=== PATIENT | female | born 1940 | race Caucasian/White ===

== ENCOUNTER 2017-06-16 16:09 | Inpatient (IN) | payer OTHER ==
[~2017-06-16] VITALS: Ht 157.5 cm; Wt 75.0 kg
[2017-06-16 16:15] VITALS: Ht 157.5 cm; Wt 75.0 kg
[2017-06-16] MEDS ORDERED: IBUPROFEN 600 MG TAB PO STA (16:45)
--- NOTE | 2017-06-16 17:44 | RADRPT ---
PROCEDURE: XR right ankle. CLINICAL INDICATION: Injury with right ankle pain TECHNIQUE: AP , oblique and lateral views of the right ankle were performed. COMPARISON: None. FINDINGS: Diffuse decreased mineralization cannot exclude osteopenia or osteoporosis. Abnormal fracture lucenc y on the oblique view is present in the fifth metatarsal base without significant displacement. No a dditional fractures are noted. The ankle mortis and talar dome are intact. Mild soft tissue swelling is present. There is no evidence for a radiopaque foreign body. RPTAT:HJJR IMPRESSION: Acute, closed, nondisplaced fifth metatarsal base fracture of the right ankle with diffuse soft tis jessica swelling. Physician Dat Date Time Electronically viewed and signed by Physician Dat on 06/16/2017 17:43 /
--- NOTE | 2017-06-16 17:45 | RADRPT ---
PROCEDURE: XR right foot. CLINICAL INDICATION: Fall. Generalized pain TECHNIQUE: AP, lateral and oblique views of the right foot were obtained. COMPARISON: Right ankle series 06/16/2017 FINDINGS: Diffuse decreased mineralization cannot exclude osteopenia or osteoporosis. Abnormal fracture lucenc y through the lateral fifth metatarsal base is present without significant displacement of the fract ure fragments. No additional fractures are noted. There is no evidence for dislocation. Mild inte rphalangeal joint osteoarthrosis is seen. Mild diffuse soft tissue swelling is present . There is n o evidence for radiopaque foreign body. RPTAT:HJJR IMPRESSION: Acute, closed, nondisplaced fifth metatarsal base fracture of the right foot. Physician Dat Date Time Electronically viewed and signed by Physician Dat on 06/16/2017 17:44 JR/
[2017-06-16] MEDS ORDERED: IBUP-1542 PO (17:53)
--- NOTE | 2017-06-16 18:21 | ERA ---
ER Documentation Chief Complaint Date/Time DATE: 06/16/17 TIME: 18:13 Chief Complaint Complains of right foot pain HPI 77 year old female presents to the emergency department complaining of moderate achy right lateral ankle and foot pain status post fall that occurred at 11:30 AM this morning. Patient states that she lives alone in an apartment on the third floor with that has only stairs. Patient states that she has no family at bedside the patient has not taken any medications for this ROS All systems reviewed and are negative except as per history of present illness. Medications Home Meds Active Scripts Ibuprofen* (Motrin*) 600 Mg Tab, 400 MG PO Q6H Y for PAIN AND OR ELEVATED TEMP, #30 TAB Prov:TONNY FAROOQ PA-C 06/16/17 Allergies Allergies: Coded Allergies: No Known Allergy (Unverified , 06/16/17) PMhx/Soc Medical and Surgical Hx: pt denies Medical Hx, pt denies Surgical Hx Physical Exam Vitals Vital Signs Date Time Temp Pulse Resp B/P Pulse Ox O2 Delivery O2 Flow Rate FiO2 06/16/17 16:15 98.6 79 20 158/66 96 Physical Exam General: WD/WN, in no apparent distress, non-toxic appearing HENT: NC/AT Eyes: Conjunctiva normal Neck: Supple Pulm: Clear to auscultation, normal labored breathing; no wheezing/rales/ rhonchi heard CV: Good capillary refill GI: Non-distended, no guarding Back: No masses Ext: bone tenderness at posterior edge or tip of lateral malleolus bone tenderness at base of 5th metatarsal Neuro: plantar reflex intact, patellar reflex intact, +2 pedal pulses bilaterally, sensation intact Skin: intact Psych: Normal mood Results 24 hrs Current Medications Medications (Trade) Dose Ordered Sig/Morelia Route PRN Reason Start Time Stop Time Status Last Admin Dose Admin Ibuprofen (Motrin) 600 mg ONCE STAT PO 06/16/17 16:45 06/16/17 16:47 DC 06/16/17 17:03 Procedures/MDM This is a 77-year-old female presenting to the emergency department with a closed Mcleod fracture the right foot status post ground level fall that occurred at 11:30 AM. Patient will need to be admitted with orthopedic consultation. Patient is stable to be transferred to [facility]. In the ED, an x-ray of the right foot and ankle have been done, radiologist stated: acute, closed, nondisplaced fifth metatarsal base fracture of the right foot. Patient was placed in a nonweightbearing posterior ankle splint. I have consulted my supervising physician will contact the hospitalist and orthopedist Departure Diagnosis: Primary Impression: Metatarsal fracture Condition: Stable TONNY FAROOQ PA-C Jun 16, 2017 18:21
[2017-06-16] MEDS ORDERED: ONDANSETRON 4 MG INJ IV PRN (19:00)
[2017-06-16] MEDS ORDERED: ACETAMINOPHEN 325 MG TAB PO PRN (19:00)
[2017-06-16 19:12] LABS: BASOPHIL # 0.1 10^3/ul (0.0-0.1); BASOPHILS % 0.8 % (0.0-2.0); EOSINOPHILS # 0.2 10^3/ul (0.0-0.5); EOSINOPHILS % 2.6 % (0.0-7.0); HEMATOCRIT 40.4 % (37.0-47.0); HEMOGLOBIN 13.8 g/dl (12.0-16.0); LYMPHOCYTES # 2.3 10^3/ul (0.8-2.9); LYMPHOCYTES % 31.7 % (15.0-51.0); MEAN CORPUSCULAR HEMOGLOBIN 31.3 pg (29.0-33.0); MEAN CORPUSCULAR HGB CONC 34.2 g/dl (32.0-37.0); MEAN CORPUSCULAR VOLUME 91.6 fl (82.0-101.0); MEAN PLATELET VOLUME 9.1 fl (7.4-10.4); MONOCYTE # 0.4 10^3/ul (0.3-0.9); MONOCYTES % 5.8 % (0.0-11.0); NEUTROPHIL # 4.2 10^3/ul (1.6-7.5); NEUTROPHILS % 58.7 % (39.0-77.0); PLATELET COUNT 223 10^3/UL (140-415); RED BLOOD COUNT 4.41 10^6/ul (4.20-5.40); WHITE BLOOD COUNT 7.2 10^3/ul (4.8-10.8)
[2017-06-16 19:28] LABS: INR 0.93; PROTIME 12.5 Sec (12.2-14.2)
[2017-06-16 19:29] LABS: PARTIAL THROMBOPLASTIN TIME 28.1 Sec (25.0-35.0)
[2017-06-16 19:39] LABS: ANION GAP 13 (8-16); BLOOD UREA NITROGEN 25 mg/dl (7-20); CALCIUM 9.9 mg/dl (8.4-10.2); CARBON DIOXIDE 29 mmol/L (21-31); CHLORIDE 102 mmol/L (97-110); CREATININE 1.05 mg/dl (0.44-1.00); GLUCOSE 181 mg/dl (70-220); SODIUM 140 mmol/L (135-144)
[2017-06-16 19:57] LABS: TROPONIN-I < 0.012 ng/ml (0.00-0.12)
[2017-06-16 20:10] VITALS: TEMP 97.3
--- NOTE | 2017-06-16 20:54 | RADRPT ---
PROCEDURE: XR Chest. CLINICAL INDICATION: Abdominal pain. TECHNIQUE: Single frontal view of the chest. COMPARISON: None. FINDINGS: The cardiomediastinal silhouette is within normal limits. Tortuous thoracic aorta appear The lungs a re clear. No signs of pleural fluid or pneumothorax are seen. Degenerative changes of bilateral alex ohumeral joint with marginal osteophytes. Otherwise, the osseous structures and soft tissues are unr emarkable. IMPRESSION: No evidence for active cardiopulmonary disease. RPTAT: UU Physician Broderick Date Time Electronically viewed and signed by Physician Broderick on 06/16/2017 20:53 RS/
[2017-06-16 21:05] LABS: ADD UMIC YES; UR ASCORBIC ACID NEGATIVE (NEGATIVE); UR BACTERIA FEW /HPF (NONE SEEN); UR BILIRUBIN (Dip) NEGATIVE (NEGATIVE); UR BLOOD (Dip) NEGATIVE (NEGATIVE); UR CLARITY CLEAR (CLEAR); UR COLOR YELLOW (YELLOW); UR GLUCOSE (Dip) NEGATIVE (NEGATIVE); UR KETONES (Dip) NEGATIVE (NEGATIVE); UR LEUKOCYTE ESTERASE (Dip) 1+ Leu/ul (NEGATIVE); UR MUCUS FEW /HPF (NONE SEEN); UR NITRITE (Dip) NEGATIVE (NEGATIVE); UR RBC 2 /HPF (0-5); UR SPECIFIC GRAVITY (Dip) 1.012 (1.003-1.030); UR SQUAMOUS EPITHELIAL CELL FEW /HPF (FEW); UR TOTAL PROTEIN (Dip) NEGATIVE (NEGATIVE); UR UROBILINOGEN (Dip) NEGATIVE (NEGATIVE)
[2017-06-16] MEDS ORDERED: LISI20TA11 PO (23:08)
[2017-06-17] MEDS ORDERED: ACETAMINOPHEN 325 MG TAB PO PRN
[2017-06-17] MEDS ORDERED: GLUCAGON 1 MG INJ IM PRN (00:15)
[2017-06-17] MEDS ORDERED: DEXTROSE 50% 50 ML SYRINGE IV PRN ×2 (00:15)
[2017-06-17] MEDS ORDERED: GLUCOSE GEL 15 GRAM TUBE PO PRN ×2 (00:15)
[2017-06-17] MEDS ORDERED: GLUCOSE GEL 15 GRAM TUBE BUCCAL PRN (00:15)
[2017-06-17] MEDS: HEPARIN 5,000 UNIT/0.5 ML VIAL SC SCH ×3 (00:59→21:34)
[2017-06-17] MEDS: ACCU-CHEK XX SCH (02:00)
[2017-06-17] MEDS ORDERED: ACCU-CHEK XX SCH (02:00)
--- NOTE | 2017-06-17 05:12 | HP ---
Date/Time of Note Date/Time of Note DATE: 06/17/17 TIME: 05:04 Assessment/Plan VTE Prophylaxis VTE Prophylaxis Intervention: heparin Lines/Catheters IV Catheter Type (from Nrsg): Saline Lock Assessment/Plan Assessment/Plan 1. Acute right fifth metatarsal fracture -Nonweightbearing status for now -Pain management and cold compress over the ankle -Dr. Collier from Ortho to see 2. Presumed AK I -IV fluid for now 3. History of hypertension -Adjust antihypertensives as needed 4. History of diabetes -Check A1c -Insulin while in-house HPI/ROS Admit Date/Time Admit Date/Time Jun 16, 2017 at 18:39 Hx of Present Illness This is a 77-year-old female with a history of CVA in 2010 hypertension, dyslipidemia, diabetes who presented to the ER complaining of right foot/ankle pain status post a fall. Patient fell as she was going down the stairs. She thinks, she either slipped or tripped. Denied any chest pain, lightheadedness, palpitation, lightheadedness. She denied hitting her head. When she presented to the ER imaging shows nondisplaced closed acute right fifth metatarsal base fracture with diffuse soft tissue swelling of her ankle. PMH/Family/Social Past Medical History Medical History: diabetes, high cholesterol Social History Alcohol Use: none Smoking Status: Never smoker Drug Use: none Exam/Review of Systems Vital Signs Vitals Vital Signs Date Time Temp Pulse Resp B/P Pulse Ox O2 Delivery O2 Flow Rate FiO2 06/16/17 20:10 97.3 63 18 146/64 97 Room Air Exam Constitutional: other (Sleepy but arousable. No acute distress) Head: atraumatic, normocephalic Eyes: PERRL Respiratory: clear to auscultation, normal air movement Cardiovascular: nl pulses, regular rate and rhythm Gastrointestinal: non-tender, soft Extremities: other (Left ankle/foot swelling and tenderness) Labs Result Diagram: 06/16/17190406/16/171904 Medications Medications Current Medications Diagnostic Test (Pha) (Accu-Chek) XX ; Start 06/17/17 at 02:00 Insulin Glargine (Lantus) 10 unit HS SC ; Start 06/17/17 at 21:00 Lisinopril (Zestril) 20 mg DAILY PO ; Start 06/17/17 at 09:00 Morphine Sulfate (morphine) 3 mg Q4H PRN IV PAIN; Start 06/17/17 at 00:00 Acetaminophen (Tylenol Tab) 650 mg Q6H PRN PO PAIN AND OR ELEVATED TEMP; Start 06/17/17 at 00:00 Heparin Sodium (Porcine) (Heparin (5000 Units/0.5 ml)) 5,000 unit Q12 SC Last administered on 06/17/17t 00:59; Admin Dose 5,000 UNIT; Start 06/17/17 at 00:00 Atorvastatin Calcium (Lipitor) 40 mg HS PO ; Start 06/17/17 at 21:00 Miscellaneous Information 1 ea NOTE XX ; Start 06/17/17 at 00:15 Glucose (Glutose) 15 gm Q15M PRN PO DECREASED GLUCOSE; Start 06/17/17 at 00:15 Glucose (Glutose) 22.5 gm Q15M PRN PO DECREASED GLUCOSE; Start 06/17/17 at 00: 15 Dextrose (D50w Syringe) 25 ml Q15M PRN IV DECREASED GLUCOSE; Start 06/17/17 at 00:15 Dextrose (D50w Syringe) 50 ml Q15M PRN IV DECREASED GLUCOSE; Start 06/17/17 at 00:15 Glucagon (Glucagen) 1 mg Q15M PRN IM DECREASED GLUCOSE; Start 06/17/17 at 00:15 Glucose (Glutose) 15 gm Q15M PRN BUCCAL DECREASED GLUCOSE; Start 06/17/17 at 00 :15 JEAN LUCIA MD Jun 17, 2017 05:12
[2017-06-17 05:13] LABS: BASOPHIL # 0.1 10^3/ul (0.0-0.1); BASOPHILS % 0.9 % (0.0-2.0); EOSINOPHILS # 0.2 10^3/ul (0.0-0.5); EOSINOPHILS % 4.1 % (0.0-7.0); HEMATOCRIT 35.6 % (37.0-47.0); HEMOGLOBIN 12.1 g/dl (12.0-16.0); LYMPHOCYTES # 2.1 10^3/ul (0.8-2.9); LYMPHOCYTES % 39.9 % (15.0-51.0); MEAN CORPUSCULAR HEMOGLOBIN 30.6 pg (29.0-33.0); MEAN CORPUSCULAR VOLUME 90.1 fl (82.0-101.0); MEAN PLATELET VOLUME 9.5 fl (7.4-10.4); MONOCYTE # 0.4 10^3/ul (0.3-0.9); MONOCYTES % 7.7 % (0.0-11.0); NEUTROPHIL # 2.5 10^3/ul (1.6-7.5); NEUTROPHILS % 47.2 % (39.0-77.0); PLATELET COUNT 209 10^3/UL (140-415); RED BLOOD COUNT 3.95 10^6/ul (4.20-5.40); RED CELL DISTRIBUTION WIDTH 11.9 % (11.5-14.5); WHITE BLOOD COUNT 5.3 10^3/ul (4.8-10.8)
[2017-06-17 05:47] LABS: ALBUMIN 3.7 g/dl (3.3-4.9); ALBUMIN/GLOBULIN RATIO 1.12; BILIRUBIN,INDIRECT 0.4 mg/dl (0-1.1); BILIRUBIN,TOTAL 0.4 mg/dl (0.2-1.3); CALCIUM 9.2 mg/dl (8.4-10.2); CREATININE 1.07 mg/dl (0.44-1.00)
[2017-06-17] MEDS: INSULIN ASPART [NOVOLOG] 3 ML PEN SC SCH ×4 (07:50→21:33)
[2017-06-17 08:16] VITALS: BP 119/57; RESP 16
[2017-06-17] MEDS: LISINOPRIL 20 MG TAB PO SCH (08:51)
[2017-06-17] MEDS: morphine 4 MG/ML VIAL IV PRN (08:54)
--- NOTE | 2017-06-17 13:39 | PN ---
Date/Time of Note Date/Time of Note DATE: 06/17/17 TIME: 13:36 Assessment/Plan VTE Prophylaxis VTE Prophylaxis Intervention: heparin Lines/Catheters IV Catheter Type (from Nrs): Saline Lock Assessment/Plan Chief Complaint/Hosp Course Assessment/Plan: 77 F with: 1. Acute right fifth metatarsal fracture -Nonweightbearing status for now -Pain management and cold compress over the ankle -Dr. Collier from Ortho to see, follow-up recommendations 2. Presumed AK I -IV fluid for now 3. History of hypertension -Adjust antihypertensives as needed 4. History of diabetes -f/u A1c -Insulin while in-house Problems: Subjective 24 Hr Interval Summary Free Text/Dictation Still waiting to be seen by orthopedic surgery team. No acute events overnight. Exam/Review of Systems Vital Signs Vitals Vital Signs Date Time Temp Pulse Resp B/P Pulse Ox O2 Delivery O2 Flow Rate FiO2 06/17/17 08:16 98.7 66 16 119/57 100 06/16/17 20:10 Room Air Intake and Output 06/16/17 06/16/17 06/17/17 15:00 23:00 07:00 Intake Total 740 ml Output Total 550 ml Balance 190 ml Exam Constitutional: lying in bed Head: atraumatic, normocephalic Eyes: PERRL Respiratory: clear to auscultation, normal air movement Cardiovascular: nl pulses, regular rate and rhythm Gastrointestinal: non-tender, soft Extremities: other (Left ankle/foot swelling and tenderness) Results Result Diagram: 06/17/17 0449 06/17/17 0449 Results 24 hrs Laboratory Tests Test 06/16/17 19:05 06/16/17 20:20 06/17/17 00:53 06/17/17 04:49 White Blood Count 7.2 5.3 # Red Blood Count 4.41 3.95 L Hemoglobin 13.8 12.1 Hematocrit 40.4 35.6 L Mean Corpuscular Volume 91.6 90.1 Mean Corpuscular Hemoglobin 31.3 30.6 Mean Corpuscular Hemoglobin Concent 34.2 34.0 Red Cell Distribution Width 12.0 11.9 Platelet Count 223 209 Mean Platelet Volume 9.1 9.5 Neutrophils % 58.7 47.2 Lymphocytes % 31.7 39.9 Monocytes % 5.8 7.7 Eosinophils % 2.6 4.1 Basophils % 0.8 0.9 Nucleated Red Blood Cells % 0.0 0.0 Neutrophils # 4.2 2.5 Lymphocytes # 2.3 2.1 Monocytes # 0.4 0.4 Eosinophils # 0.2 0.2 Basophils # 0.1 0.1 Nucleated Red Blood Cells # 0.0 0.0 Prothrombin Time 12.5 Prothrombin Time Ratio 1.0 INR International Normalized Ratio 0.93 Activated Partial Thromboplast Time 28.1 Sodium Level 140 141 Potassium Level 4.0 4.0 Chloride Level 102 107 Carbon Dioxide Level 29 27 Anion Gap 13 11 Blood Urea Nitrogen 25 H 24 H Creatinine 1.05 H 1.07 H Glucose Level 181 179 Calcium Level 9.9 9.2 Troponin I < 0.012 Urine Color YELLOW Urine Clarity CLEAR Urine pH 6.0 Urine Specific [place] 1.012 Urine Ketones NEGATIVE Urine Nitrite NEGATIVE Urine Bilirubin NEGATIVE Urine Urobilinogen NEGATIVE Urine Leukocyte Esterase 1+ H Urine Microscopic RBC 2 Urine Microscopic WBC 12 H Urine Squamous Epithelial Cells FEW Urine Bacteria FEW A Urine Mucus FEW A Urine Hemoglobin NEGATIVE Urine Glucose NEGATIVE Urine Total Protein NEGATIVE Bedside Glucose 146 Hemoglobin A1c 5.9 Total Bilirubin 0.4 Direct Bilirubin 0.00 Indirect Bilirubin 0.4 Aspartate Amino Transf (AST/SGOT) 20 Alanine Aminotransferase (ALT/SGPT) 24 Alkaline Phosphatase 66 Total Protein 7.0 Albumin 3.7 Globulin 3.30 H Albumin/Globulin Ratio 1.12 Test 06/17/17 08:50 06/17/17 12:22 Bedside Glucose 137 189 Medications Medications Current Medications Diagnostic Test (Pha) (Accu-Chek) 1 02 XX ; Start 06/17/17 at 02:00 Insulin Glargine (Lantus) 10 unit HS SC ; Start 06/17/17 at 21:00 Lisinopril (Zestril) 20 mg DAILY PO Last administered on 06/17/17 08:51; Admin Dose 20 MG; Start 06/17/17 at 09:00 Morphine Sulfate (morphine) 3 mg Q4H PRN IV PAIN Last administered on 08:54; Admin Dose 3 MG; Start 06/17/17 at 00:00 Acetaminophen (Tylenol Tab) 650 mg Q6H PRN PO PAIN AND OR ELEVATED TEMP; Start 06/17/17 at 00:00 Heparin Sodium (Porcine) (Heparin (5000 Units/0.5 ml)) 5,000 unit Q12 SC Last administered on 06/17/17t 09:03; Admin Dose 5,000 UNIT; Start 06/17/17 at 00:00 Atorvastatin Calcium (Lipitor) 40 mg HS PO ; Start 06/17/17 at 21:00 Miscellaneous Information 1 ea NOTE XX ; Start 06/17/17 at 00:15 Glucose (Glutose) 15 gm Q15M PRN PO DECREASED GLUCOSE; Start 06/17/17 at 00:15 Glucose (Glutose) 22.5 gm Q15M PRN PO DECREASED GLUCOSE; Start 06/17/17 at 00: 15 Dextrose (D50w Syringe) 25 ml Q15M PRN IV DECREASED GLUCOSE; Start 06/17/17 at 00:15 Dextrose (D50w Syringe) 50 ml Q15M PRN IV DECREASED GLUCOSE; Start 06/17/17 at 00:15 Glucagon (Glucagen) 1 mg Q15M PRN IM DECREASED GLUCOSE; Start 06/17/17 at 00:15 Glucose (Glutose) 15 gm Q15M PRN BUCCAL DECREASED GLUCOSE; Start 06/17/17 at 00 :15 MICHELLE PALMA Jun 17, 2017 13:39
[2017-06-17 14:00] VITALS: BP 127/55; RESP 15
[2017-06-17] MEDS: CIPROFLOXACIN 250 MG TAB PO SCH ×2 (14:51→21:30)
[2017-06-17 19:10] VITALS: BP 123/63; RESP 20
--- NOTE | 2017-06-17 20:48 | CONS ---
DATE OF ADMISSION: 06/16/2017 DATE OF CONSULTATION: 06/17/2017 HISTORY OF PRESENT ILLNESS: Patient is a 77-year-old female who was admitted through the emergency room on the May when she was brought into the emergency room because of the painful swelling involving her left foot. According to available information, she either slipped or tripped while she was going down stairs. She is known to have diabetes, hypertension and dyslipidemia. She also had a CVA in 2010, however, there were no residual weakness or difficulty in ambulation prior to this incidence. PHYSICAL EXAMINATION: GENERAL: Revealed a 77-year-old female who was not in any acute distress. EXTREMITIES: Her right lower extremity was already immobilized in a short-leg posterior splint. The examination through the splint and dressings revealed tenderness and swelling over the lateral aspect of the right foot. The tenderness seems to be mostly localized over the base of the right 5th metatarsal. There were no signs of neurovascular compromise involving the right foot. X-rays of the right foot revealed a presence of fracture involving the base of the right 5th metatarsal. The alignment was acceptable. DIAGNOSTIC IMPRESSION: Mcleod fracture, that is a fracture involving the base of the 5th metatarsal of the right foot, in acceptable alignment. Plan RECOMMENDATIONS FOR TREATMENT: 1. Immobilization of the right lower extremity in a short-leg Cam walker brace for six weeks. 2. Recommended brace has been ordered. She could be up and around with the brace on with weightbearing as tolerated. Dictated By: In Katie Collier MD /[email or web address]/[email or web address] /Document#: [id number]
[2017-06-17] MEDS: ATORVASTATIN 40 MG TAB PO SCH (21:30)
[2017-06-17] MEDS: INSULIN GLARGINE [LANtus] 3 ML PEN SC SCH (21:34)
[2017-06-18] MEDS: morphine 4 MG/ML VIAL IV PRN ×2 (00:27→08:45)
[2017-06-18 02:00] VITALS: BP 122/59; RESP 18
[2017-06-18] MEDS: ACCU-CHEK XX SCH (02:00)
[2017-06-18] MEDS: CIPROFLOXACIN 250 MG TAB PO SCH ×2 (06:49→17:26)
[2017-06-18 07:50] VITALS: BP 133/62; RESP 20
[2017-06-18] MEDS: INSULIN ASPART [NOVOLOG] 3 ML PEN SC SCH ×4 (07:50→21:00)
[2017-06-18] MEDS: LISINOPRIL 20 MG TAB PO SCH (08:38)
[2017-06-18] MEDS: HEPARIN 5,000 UNIT/0.5 ML VIAL SC SCH ×2 (08:42→21:13)
[2017-06-18] MEDS: HYDROCODONE/APAP (7.5/325) TAB PO PRN (10:39)
[2017-06-18] MEDS ORDERED: morphine 2 MG INJ IV PRN (11:00)
--- NOTE | 2017-06-18 11:40 | PN ---
Date/Time of Note Date/Time of Note DATE: 06/18/17 TIME: 11:38 Assessment/Plan VTE Prophylaxis VTE Prophylaxis Intervention: heparin Lines/Catheters IV Catheter Type (from Nrsg): Saline Lock Urinary Cath still in place: No Assessment/Plan Chief Complaint/Hosp Course Assessment/Plan: 77 F with: 1. Acute right fifth metatarsal fracture -Nonweightbearing status for now -Pain management and cold compress over the ankle -Dr. Collier from Ortho recommending immobilization of the right lower extremity in a short-leg Cam walker brace for six weeks -has been ordered, will also plan for physical therapy after this. 2. Presumed AK I -IV fluid for now 3. History of hypertension -Adjust antihypertensives as needed 4. History of diabetes -f/u A1c -Insulin while in-house Problems: Subjective 24 Hr Interval Summary Free Text/Dictation Seen by orthopedic team this morning. Complaining of right foot pain this morning. Exam/Review of Systems Vital Signs Vitals Vital Signs Date Time Temp Pulse Resp B/P Pulse Ox O2 Delivery O2 Flow Rate FiO2 06/18/17 07:50 97.8 69 20 133/62 94 06/16/17 20:10 Room Air Intake and Output 06/17/17 06/17/17 06/18/17 15:00 23:00 07:00 Intake Total 1100 ml 800 ml Output Total 800 ml 1000 ml Balance 300 ml -200 ml Exam Constitutional: lying in bed Head: atraumatic, normocephalic Eyes: PERRL Respiratory: clear to auscultation, normal air movement Cardiovascular: nl pulses, regular rate and rhythm Gastrointestinal: non-tender, soft Extremities: other (Left ankle/foot swelling and tenderness) Results Result Diagram: 06/17/17 0449 06/17/17 0449 Results 24 hrs Laboratory Tests Test 06/17/17 12:22 06/17/17 17:35 06/17/17 21:31 06/18/17 02:21 Bedside Glucose 189 117 212 118 Test 06/18/17 08:37 Bedside Glucose 97 Medications Medications Current Medications Diagnostic Test (Pha) (Accu-Chek) 1 ea 02 XX Last administered on 06/18/17 02: 00; Admin Dose 1 EA; Start 06/17/17 at 02:00 Insulin Glargine (Lantus) 10 unit HS SC Last administered on 06/17/17 21:34; Admin Dose 10 UNIT; Start 06/17/17 at 21:00 Lisinopril (Zestril) 20 mg DAILY PO Last administered on 06/18/17 08:38; Admin Dose 20 MG; Start 06/17/17 at 09:00 Acetaminophen (Tylenol Tab) 650 mg Q6H PRN PO PAIN AND OR ELEVATED TEMP; Start 06/17/17 at 00:00 Heparin Sodium (Porcine) (Heparin (5000 Units/0.5 ml)) 5,000 unit Q12 SC Last administered on 06/18/17 08:42; Admin Dose 5,000 UNIT; Start 06/17/17 at 00:00 Atorvastatin Calcium (Lipitor) 40 mg HS PO Last administered on 06/17/17 21:30 ; Admin Dose 40 MG; Start 06/17/17 at 21:00 Miscellaneous Information 1 ea NOTE XX ; Start 06/17/17 at 00:15 Glucose (Glutose) 15 gm Q15M PRN PO DECREASED GLUCOSE; Start 06/17/17 at 00:15 Glucose (Glutose) 22.5 gm Q15M PRN PO DECREASED GLUCOSE; Start 06/17/17 at 00: 15 Dextrose (D50w Syringe) 25 ml Q15M PRN IV DECREASED GLUCOSE; Start 06/17/17 at 00:15 Dextrose (D50w Syringe) 50 ml Q15M PRN IV DECREASED GLUCOSE; Start 06/17/17 at 00:15 Glucagon (Glucagen) 1 mg Q15M PRN IM DECREASED GLUCOSE; Start 06/17/17 at 00:15 Glucose (Glutose) 15 gm Q15M PRN BUCCAL DECREASED GLUCOSE; Start 06/17/17 at 00 :15 Ciprofloxacin (Cipro) 250 mg BID@06,18 PO Last administered on 06/18/17 06:49 ; Admin Dose 250 MG; Start 06/17/17 at 14:00 Acetaminophen/ Hydrocodone Bitart ([place] (7.5-325)) 1 tab Q4H PRN PO PAIN Last administered on 06/18/17 10:39; Admin Dose 1 TAB; Start 06/18/17 at 11:00 Morphine Sulfate (morphine) 2 mg Q4H PRN IV SEVERE PAIN LEVEL 7-10; Start 06/18 at 11:00 MICHELLE PALMA Jun 18, 2017 11:40
[2017-06-18 14:43] VITALS: BP 166/76; RESP 18
[2017-06-18] MEDS ORDERED: ONDANSETRON 4 MG INJ IV PRN (15:00)
[2017-06-18 19:20] VITALS: BP 131/62; RESP 18
[2017-06-18] MEDS: ATORVASTATIN 40 MG TAB PO SCH (21:10)
[2017-06-18] MEDS: INSULIN GLARGINE [LANtus] 3 ML PEN SC SCH (21:14)
[2017-06-19] MEDS: ACCU-CHEK XX SCH (01:39)
[2017-06-19 02:20] VITALS: BP 126/62; RESP 18
[2017-06-19] MEDS ORDERED: MAGNESIUM HYDROXIDE 30ML CUP PO PRN (06:00)
[2017-06-19] MEDS: CIPROFLOXACIN 250 MG TAB PO SCH (06:06)
[2017-06-19] MEDS: SENNA TAB PO SCH ×2 (06:06→08:48)
[2017-06-19 07:43] VITALS: BP 148/73; RESP 18
[2017-06-19] MEDS: INSULIN ASPART [NOVOLOG] 3 ML PEN SC SCH ×4 (07:50→20:28)
[2017-06-19] MEDS: LISINOPRIL 20 MG TAB PO SCH (08:48)
[2017-06-19] MEDS: HEPARIN 5,000 UNIT/0.5 ML VIAL SC SCH ×2 (08:50→20:20)
[2017-06-19] MEDS: HYDROCODONE/APAP (7.5/325) TAB PO PRN (13:12)
--- NOTE | 2017-06-19 15:20 | PN ---
Date/Time of Note Date/Time of Note DATE: 06/19/17 TIME: 15:16 Assessment/Plan VTE Prophylaxis VTE Prophylaxis Intervention: SCD's Lines/Catheters IV Catheter Type (from Nrsg): Saline Lock Urinary Cath still in place: No Assessment/Plan Assessment/Plan 77 yo F admitted for R ankle pain following a fall, found to have a Mcleod fracture sp ortho eval, conservative management advised discharge planning in process, CM aware cont home meds Patient is medically stable for discharge once a disposition location is determined Subjective 24 Hr Interval Summary Free Text/Dictation Pt resting in bed this morning Exam/Review of Systems Vital Signs Vitals Vital Signs Date Time Temp Pulse Resp B/P Pulse Ox O2 Delivery O2 Flow Rate FiO2 06/19/17 07:43 98.0 70 18 148/73 97 06/16/17 20:10 Room Air Intake and Output 06/18/17 06/18/17 06/19/17 15:00 23:00 07:00 Intake Total 300 ml 450 ml Output Total 200 ml 400 ml Balance 100 ml 50 ml Exam nad ankle in boot resp nonlabored no edema no rashes Results Result Diagram: 06/17/17 0449 06/17/17 0449 Results 24 hrs Laboratory Tests Test 06/18/17 17:26 06/18/17 21:08 06/19/17 08:31 06/19/17 12:48 Bedside Glucose 128 180 118 201 Medications Medications Current Medications Diagnostic Test (Pha) (Accu-Chek) 1 ea 02 XX Last administered on 06/18/17 02: 00; Admin Dose 1 EA; Start 06/17/17 at 02:00 Insulin Glargine (Lantus) 10 unit HS SC Last administered on 06/18/17 21:14; Admin Dose 10 UNIT; Start 06/17/17 at 21:00 Lisinopril (Zestril) 20 mg DAILY PO Last administered on 06/19/17 08:48; Admin Dose 20 MG; Start 06/17/17 at 09:00 Acetaminophen (Tylenol Tab) 650 mg Q6H PRN PO PAIN AND OR ELEVATED TEMP; Start 06/17/17 at 00:00 Heparin Sodium (Porcine) (Heparin (5000 Units/0.5 ml)) 5,000 unit Q12 SC Last administered on 06/19/17 08:50; Admin Dose 5,000 UNIT; Start 06/17/17 at 00:00 Atorvastatin Calcium (Lipitor) 40 mg HS PO Last administered on 06/18/17 21:10 ; Admin Dose 40 MG; Start 06/17/17 at 21:00 Miscellaneous Information 1 ea NOTE XX ; Start 06/17/17 at 00:15 Glucose (Glutose) 15 gm Q15M PRN PO DECREASED GLUCOSE; Start 06/17/17 at 00:15 Glucose (Glutose) 22.5 gm Q15M PRN PO DECREASED GLUCOSE; Start 06/17/17 at 00: 15 Dextrose (D50w Syringe) 25 ml Q15M PRN IV DECREASED GLUCOSE; Start 06/17/17 at 00:15 Dextrose (D50w Syringe) 50 ml Q15M PRN IV DECREASED GLUCOSE; Start 06/17/17 at 00:15 Glucagon (Glucagen) 1 mg Q15M PRN IM DECREASED GLUCOSE; Start 06/17/17 at 00:15 Glucose (Glutose) 15 gm Q15M PRN BUCCAL DECREASED GLUCOSE; Start 06/17/17 at 00 :15 Acetaminophen/ Hydrocodone Bitart ([place] (7.5-325)) 1 tab Q4H PRN PO PAIN Last administered on 06/19/17 13:12; Admin Dose 1 TAB; Start 06/18/17 at 11:00 Morphine Sulfate (morphine) 2 mg Q4H PRN IV SEVERE PAIN LEVEL 7-10 Last administered on 06/18/17 11:59; Admin Dose 2 MG; Start 06/18/17 at 11:00 Ondansetron HCl (Zofran Inj) 4 mg Q6H PRN IV NAUSEA AND/OR VOMITING; Start 06/18/17 at 15:00 Senna (Senokot) 2 tab DAILY PO Last administered on 06/19/17 08:48; Admin Dose 2 TAB; Start 06/19/17 at 06:00 Magnesium Hydroxide (Milk Of Mag) 30 ml DAILY PRN PO CONSTIPATION; Start at 06:00 OSCAR PATEL MD Jun 19, 2017 15:20
[2017-06-19 19:25] VITALS: BP 163/74; RESP 20
[2017-06-19] MEDS: ATORVASTATIN 40 MG TAB PO SCH (20:18)
[2017-06-19] MEDS: INSULIN GLARGINE [LANtus] 3 ML PEN SC SCH (20:27)
[2017-06-20 00:30] VITALS: BP 137/69; PULSE 74
[2017-06-20] MEDS: ACCU-CHEK XX SCH (01:18)
[2017-06-20 02:15] VITALS: BP 137/69; RESP 19
--- NOTE | 2017-06-20 07:34 | PN ---
DATE: 06/19/2017 SUBJECTIVE DATA: The patient has been up with Cam Walker brace over right lower extremity. If she can tolerate ambulation well, she can be discharged anytime from orthopedic surgical point of view. Further ortho followup in about 7-10 days with the repeated x-rays of the right foot. Dictated By: In Katie Collier MD /[email or web address]/hazel /Document#: [id number]
[2017-06-20] MEDS: INSULIN ASPART [NOVOLOG] 3 ML PEN SC SCH ×4 (07:50→20:25)
[2017-06-20 08:07] VITALS: BP 150/74; RESP 18
[2017-06-20] MEDS: SENNA TAB PO SCH (08:46)
[2017-06-20] MEDS: LISINOPRIL 20 MG TAB PO SCH (08:46)
[2017-06-20] MEDS: HEPARIN 5,000 UNIT/0.5 ML VIAL SC SCH ×3 (08:49→20:37)
--- NOTE | 2017-06-20 11:25 | PDOCDIS ---
Discharge Instructions CONDITION Patient Condition: Stable HOME CARE INSTRUCTIONS: Special Diet: CARB CONTROLLED FOLLOW UP/APPOINTMENTS Follow-up Plan Follow up with the orthopedic surgeon Dr Collier in 4-6 weeks Office Address [address] [place] [id number] Office OSCAR PATEL MD Jun 20, 2017 11:25
--- NOTE | 2017-06-20 11:29 | DS ---
Date/Time of Note Date/Time of Note DATE: 06/20/17 TIME: 11:25 Discharge Summary Admission/Discharge Info Admit Date/Time Jun 16, 2017 at 18:39 Discharge Date/Time Discharge Diagnosis Acute, closed, nondisplaced fifth metatarsal base fracture of the right ankle Patient Condition: Stable Consults orthopedics Procedures R foot/ankle XRs Acute, closed, nondisplaced fifth metatarsal base fracture of the right ankle with diffuse soft tissue swelling. Hx of Present Illness This is a 77-year-old female with a history of CVA in 2010 hypertension, dyslipidemia, diabetes who presented to the ER complaining of right foot/ankle pain status post a fall. Patient fell as she was going down the stairs. She thinks, she either slipped or tripped. Denied any chest pain, lightheadedness, palpitation, lightheadedness. She denied hitting her head. When she presented to the ER imaging shows nondisplaced closed acute right fifth metatarsal base fracture with diffuse soft tissue swelling of her ankle. Hospital Course Pt seen by ortho. Conservative management advised with CAM boot and outpatient follow up. Pt seen by PT which advised ARU v SNF. No changes made from patient's admit meds aside from norco PRN pain. Home Meds Active Scripts Ibuprofen* (Motrin*) 600 Mg Tab, 400 MG PO Q6H Y for PAIN AND OR ELEVATED TEMP, #30 TAB Prov:TONYN FAROOQ PA-C 06/16/17 Reported Medications Lisinopril* (Lisinopril*) 20 Mg Tablet, 20 MG PO DAILY, #30 TAB 06/16/17 Follow-up Plan Follow up with the orthopedic surgeon Dr Aviles in 7-10 days Office Address [address] [place] [id number] Office Primary Care Provider [facility] Time spent on discharge: > 30 minutes Pending Labs Laboratory Tests Test 06/19/17 12:48 06/19/17 17:29 06/19/17 20:17 06/20/17 08:44 Bedside Glucose 201mg/dL (70-220) 160mg/dL (70-220) 171mg/dL (70-220) 104mg/dL (70-220) Copies To: CC: RON AVILES MD, ELLEN MD Jun 20, 2017 11:29 Bedside Glucose 201mg/dL (70-220) 160mg/dL (70-220) 171mg/dL (70-220) 104mg/dL (70-220) Copies To: CC: RON AVILES MD, ELLEN MD Jun 20, 2017 11:29
[2017-06-20] MEDS: HYDROCODONE/APAP (7.5/325) TAB PO PRN (17:22)
[2017-06-20 20:00] VITALS: BP 145/65; RESP 20
[2017-06-20] MEDS: ATORVASTATIN 40 MG TAB PO SCH (20:24)
[2017-06-20] MEDS: INSULIN GLARGINE [LANtus] 3 ML PEN SC SCH (20:24)
[2017-06-21] MEDS: ACCU-CHEK XX SCH (02:00)
[2017-06-21 02:14] VITALS: BP 139/63; RESP 20
[2017-06-21] MEDS: INSULIN ASPART [NOVOLOG] 3 ML PEN SC SCH ×4 (07:50→20:26)
[2017-06-21 07:56] VITALS: BP 123/60; RESP 18
[2017-06-21] MEDS: LISINOPRIL 20 MG TAB PO SCH (08:46)
[2017-06-21] MEDS: HEPARIN 5,000 UNIT/0.5 ML VIAL SC SCH ×2 (08:46→20:27)
[2017-06-21] MEDS: SENNA TAB PO SCH (08:46)
[2017-06-21 14:09] VITALS: BP 128/66; RESP 18
--- NOTE | 2017-06-21 17:09 | QN ---
Documentation Comment Pt remains hospitalized. Unclear why not sent to ARU. No changes. OSCAR PATEL MD Jun 21, 2017 17:08
[2017-06-21] MEDS: ATORVASTATIN 40 MG TAB PO SCH (20:27)
[2017-06-21] MEDS: INSULIN GLARGINE [LANtus] 3 ML PEN SC SCH (22:13)
== END 2017-06-21 20:35 | DRG 563 ==
LOC: FTE 16:09 → MS1 18:39 → FTE 20:37
PROVIDERS: ADMIT Internal Medicine; ATTEND Internal Medicine
PROC: 2W3SX1Z Immobilization of Right Foot using Splint (ICD-10-PCS; principal; 2017-06-16)
DX: S92.354A Nondisplaced fracture of fifth metatarsal bone, right foot, initial encounter for closed fracture (principal); N17.9 Acute kidney failure, unspecified; I10 Essential (primary) hypertension; E11.9 Type 2 diabetes mellitus without complications; Z79.4 Long term (current) use of insulin; E78.5 Hyperlipidemia, unspecified; W18.30XA Fall on same level, unspecified, initial encounter; Y92.039 Unspecified place in apartment as the place of occurrence of the external cause
CPT/HCPCS: 36415; 71010; 73630; 80048; 80053; 81001; 82962; 83036; 84484; 85025; 85610; 85730; 86850; 86900; 86901; 93005; 97116; 97162; 97530; J1644; J1815; J2270

== ENCOUNTER 2017-06-21 18:01 | Inpatient (IN) | payer OTHER ==
[~2017-06-21] VITALS: Ht 157.5 cm; Wt 59.4 kg
[~2017-06-21 18:01] MED LIST: IBUP-1542 PO; LISI20TA11 PO
[2017-06-21 23:45] VITALS: BP 173/75; RESP 18
[2017-06-22] MEDS ORDERED: ACETAMINOPHEN 325 MG TAB PO PRN
[2017-06-22] MEDS ORDERED: SENNA TAB PO PRN
[2017-06-22] MEDS ORDERED: MAGNESIUM HYDROXIDE 30ML CUP PO PRN ×2 (01:00)
[2017-06-22] MEDS ORDERED: BISACODYL 10 MG SUPP PR PRN (01:00)
[2017-06-22 02:00] VITALS: BP 147/65; RESP 18
[2017-06-22 07:00] VITALS: BP 144/65; RESP 18
[2017-06-22 07:23] LABS: BASOPHILS % 0.6 % (0.0-2.0); EOSINOPHILS # 0.2 10^3/ul (0.0-0.5); EOSINOPHILS % 3.1 % (0.0-7.0); HEMATOCRIT 36.4 % (37.0-47.0); HEMOGLOBIN 12.4 g/dl (12.0-16.0); LYMPHOCYTES # 2.3 10^3/ul (0.8-2.9); MEAN CORPUSCULAR HEMOGLOBIN 30.8 pg (29.0-33.0); MEAN CORPUSCULAR HGB CONC 34.1 g/dl (32.0-37.0); MEAN CORPUSCULAR VOLUME 90.5 fl (82.0-101.0); MEAN PLATELET VOLUME 9.8 fl (7.4-10.4); MONOCYTE # 0.5 10^3/ul (0.3-0.9); NEUTROPHIL # 3.5 10^3/ul (1.6-7.5); NEUTROPHILS % 53.1 % (39.0-77.0); PLATELET COUNT 237 10^3/UL (140-415); RED BLOOD COUNT 4.02 10^6/ul (4.20-5.40); RED CELL DISTRIBUTION WIDTH 11.8 % (11.5-14.5); WHITE BLOOD COUNT 6.5 10^3/ul (4.8-10.8)
[2017-06-22 07:56] LABS: ALBUMIN 3.6 g/dl (3.3-4.9); ALBUMIN/GLOBULIN RATIO 0.92; BILIRUBIN,INDIRECT 0.5 mg/dl (0-1.1); BILIRUBIN,TOTAL 0.5 mg/dl (0.2-1.3); CALCIUM 9.1 mg/dl (8.4-10.2); CREATININE 0.8 mg/dl (0.44-1.00); POTASSIUM 3.8 mmol/L (3.5-5.1); TOTAL PROTEIN 7.5 g/dl (6.1-8.1)
[2017-06-22] MEDS: DOCUSATE SODIUM 100 MG CAP PO SCH ×2 (09:59→20:42)
[2017-06-22] MEDS: LISINOPRIL 20 MG TAB PO SCH (09:59)
--- NOTE | 2017-06-22 12:21 | CONS ---
Date/Time of Note Date/Time of Note DATE: 06/22/17 TIME: 12:21 Assessment/Plan Assessment/Plan Chief Complaint/Hosp Course 27-year-old female, who was transferred to ARU from [facility] for rehabilitation following acute right ankle fracture. 1. Acute closed nondisplaced fifth metatarsal base fracture of the right ankle. -Status post orthopedic evaluation with recommendation of conservative management with CAM boot and outpatient follow-up. -Continue PT/OT. 2. Essential hypertension. Stable -Continue lisinopril 3. Type 2 diabetes-controlled with latest A1c 5.9. -Patient takes Januvia at home which we will continue as Tradjenta. -Blood sugar checks twice daily. 4. Constipation. Stable -Bowel regimen/stool softeners/laxatives PRN. Plan: Patient has been on Lipitor from [facility]. There is no lipid panel available in medical records. However, she denies a history of hyperlipidemia. Therefore , we are going to obtain a lipid panel and will adjust statin dose as indicated. DVT prophylaxis: Ambulation/SCD Approximately 60 minutes was spent on this consultation. Patient was seen in collaboration with . Problems: Consultation Date/Type/Reason Admit Date/Time Jun 21, 2017 at 21:00 Reason for Consultation Internal medicine Hx of Present Illness This is a 77-year-old female with a past medical history of hypertension, type 2 diabetes for which patient takes Januvia at home, CVA in 2010 without any residual, who was admitted at [facility] for mechanical fall with resultant acute closed nondisplaced fifth metatarsal base fracture of the right ankle. At that time, patient was evaluated by orthopedic surgeon Dr. Collier , who recommended conservative management with CAM boot and outpatient follow- up. Patient was then evaluated by physical therapy and continued to have impairment in self-care requiring further rehabilitation at [facility] for complex interdisciplinary rehabilitation. Currently, patient denies chest pain, shortness of breath, nausea, vomiting, abdominal pain or other constitutional symptoms. She is sitting up in a chair comfortably. CBC, BMP within acceptable range. A 12 point review of system was assessed and is negative other than what is mentioned in the HPI. Past Medical History See HPI Past Surgical History See HPI Social History patient denies any history of alcohol, smoking or illicit drug use. Smoking Status: Never smoker Exam/Review of Systems Vital Signs Vitals Vital Signs Date Time Temp Pulse Resp B/P Pulse Ox O2 Delivery O2 Flow Rate FiO2 06/22/17 07:00 98.4 66 18 144/65 96 Intake and Output 06/21/17 06/21/17 06/22/17 15:00 23:00 07:00 Intake Total 600 ml Output Total 500 ml Balance 100 ml Exam General: Well developed,adequately built, not in any acute distress . HEENT: Normocephalic, Atraumatic, No laceration or hematoma; Eyes: PEERL, Conjunctiva clear, Anicteric sclera Neck: Supple without any lymphadenopathy, nontender, no JVD, no carotid bruits, trachea midline, no thyromegaly Cardiac: S1, S2 auscultated, regular rhythm and rate, no mumurs or gallop Pulmonary: Normal respiratory effort. Chest clear to auscultation bilaterally, no adventitious breath sounds GI: Abdomen normal to inspection. Soft, non tender, non- distended, no masses, no rebound tenderness or guarding. Bowel sounds active on all four quadrants Genitourinary: Deferred Extremities: CAM boot on right lower extremity. No cyanosis, clubbing, or edema. Pulses [2+] bilaterally. Full ROM on all four extremities. No focal weakness appreciated. Neurologic: Alert to person, place, time, and situation. Affect appropriate, intact sensation. Skin: Clean,dry, and intact. No ecchymosis, no rashes, or lesions Results Result Diagram: 06/22/17 0638 06/22/17 0638 Results 24 hrs Laboratory Tests Test 06/22/17 06:38 06/22/17 08:14 White Blood Count 6.5 # Red Blood Count 4.02 L Hemoglobin 12.4 Hematocrit 36.4 L Mean Corpuscular Volume 90.5 Mean Corpuscular Hemoglobin 30.8 Mean Corpuscular Hemoglobin Concent 34.1 Red Cell Distribution Width 11.8 Platelet Count 237 Mean Platelet Volume 9.8 Neutrophils % 53.1 Lymphocytes % 35.0 Monocytes % 8.0 Eosinophils % 3.1 Basophils % 0.6 Nucleated Red Blood Cells % 0.0 Neutrophils # 3.5 Lymphocytes # 2.3 Monocytes # 0.5 Eosinophils # 0.2 Basophils # 0.0 Nucleated Red Blood Cells # 0.0 Sodium Level 140 Potassium Level 3.8 Chloride Level 107 Carbon Dioxide Level 28 Anion Gap 9 Blood Urea Nitrogen 18 Creatinine 0.80 Glucose Level 102 Calcium Level 9.1 Total Bilirubin 0.5 Direct Bilirubin 0.00 Indirect Bilirubin 0.5 Aspartate Amino Transf (AST/SGOT) 38 Alanine Aminotransferase (ALT/SGPT) 39 Alkaline Phosphatase 88 Total Protein 7.5 Albumin 3.6 Globulin 3.90 H Albumin/Globulin Ratio 0.92 Bedside Glucose 97 Medications Medications Current Medications Senna (Senokot) 2 tab DAILY PRN PO CONSTIPATION; Start 06/22/17 at 00:00 Insulin Glargine (Lantus) 10 unit HS SC ; Start 06/22/17 at 21:00 Lisinopril (Zestril) 20 mg DAILY PO Last administered on 06/22/17 09:59; Admin Dose 20 MG; Start 06/22/17 at 09:00 Acetaminophen/ Hydrocodone Bitart ([place] (7.5-325)) 1 tab Q4H PRN PO PAIN; Start 06/22/17 at 00:00 Acetaminophen (Tylenol Tab) 650 mg Q6H PRN PO PAIN AND OR ELEVATED TEMP; Start 06/22/17 at 00:00 Atorvastatin Calcium (Lipitor) 40 mg DAILY@21 PO ; Start 06/22/17 at 21:00 Docusate Sodium (Colace) 100 mg BID PO Last administered on 06/22/17 09:59; Admin Dose 100 MG; Start 06/22/17 at 09:00 Senna (Senokot) 1 tab HS PO ; Start 06/22/17 at 21:00 Bisacodyl (Dulcolax Supp) 10 mg DAILY PRN [place] CONSTIPATION; Start 06/22/17 at 01 :00 Magnesium Hydroxide (Milk Of Mag) 30 ml BID PRN PO CONSTIPATION; Start at 01:00 Lactulose (Enulose) 20 gm DAILY PRN PO CONSTIPATION; Start 06/22/17 at 01:00 REINA HEAD NP Jun 22, 2017 12:21
[2017-06-22] MEDS ORDERED: DEXTROSE 50% 50 ML SYRINGE IV PRN ×2 (13:00)
[2017-06-22] MEDS ORDERED: GLUCAGON 1 MG INJ IM PRN (13:00)
[2017-06-22] MEDS ORDERED: GLUCOSE GEL 15 GRAM TUBE PO PRN ×2 (13:00)
[2017-06-22] MEDS ORDERED: GLUCOSE GEL 15 GRAM TUBE BUCCAL PRN (13:00)
--- NOTE | 2017-06-22 17:11 | CONS ---
DATE OF ADMISSION: 06/21/2017 DATE OF CONSULTATION: 06/22/2017 REHABILITATION POST ADMISSION PHYSICIAN EVALUATION REHABILITATION IMPAIRMENT CATEGORY: Right 5th metatarsal fracture with Cam boot placement. ACTIVE COMORBIDITIES: 1. History of CVA. 2. Hypertension. 3. Hyperlipidemia. 4. Diabetes mellitus. 5. Impairments in self-care and mobility. HISTORY OF PRESENT ILLNESS: The patient is a very pleasant 77-year-old female who has a history of CVA, who is status post a mechanical fall with resultant right 5th metatarsal fracture. Patient was evaluated by orthopedic surgery and placed in Cam boot. The patient noted to have significant impa irments in self-care and mobility as compared to baseline and has been cleared to transfer to the re habilitation unit for comprehensive interdisciplinary rehab care. FUNCTIONAL HISTORY: Prior to recent events, she was independent in self-care tasks and mobility. C urrently, the patient requires moderate assist for self-care and mobility tasks. SOCIAL HISTORY: The patient lives at home and hopes to return there upon discharge. PAST MEDICAL HISTORY 1. Cerebrovascular accident. 2. Hypertension. 3. Hyperlipidemia. 4. Diabetes mellitus. CURRENT MEDICATIONS: 1. Lipitor 40 mg p.o. at bedtime. 2. [place] p.r.n. 3. Insulin sliding scale. 4. Lantus 10 units subcutaneous at bedtime. 5. Zestril 20 mg p.o. daily. 6. Senokot p.r.n. ALLERGIES: THE PATIENT WITH NO KNOWN DRUG ALLERGIES. PHYSICAL EXAMINATION: VITAL SIGNS: The patient is currently afebrile with stable vital signs. HEENT: Extraocular motions intact. Oropharynx clear. NECK: Supple. LUNGS: Clear anteriorly. CARDIAC: S1, S2. ABDOMEN: Soft, nontender, positive bowel sounds. NEUROLOGIC: She is awake, alert and oriented x3. She can follow simple 1-step commands. Cranial n erves are grossly intact. She has good strength in bilateral upper extremity and the left lower ext remity. Patient with Cam boot in place on the right. PLAN: The patient has been admitted for comprehensive interdisciplinary acute rehab and is anticipa elvin to tolerate 3 hours of daily therapy in divided doses for at least 5 out of 7 days a week. [place] tment plan will include: 1. Physical therapy to focus on bed mobility, transfers, and household ambulation with the goal of having the patient reach standby assist level. 2. Occupational therapy to focus on hygiene, grooming, dressing, bathing, and toileting activities with goal of having the patient reach standby assist level. 3. Rehabilitation nursing for carryover of therapeutic interventions, the goal of continent of luciano l and bladder, the goal of pain adequately managed on oral medications. REHABILITATION BARRIER: Pain. INTERVENTION FOR BARRIER: Interdisciplinary approach. ESTIMATED LENGTH OF STAY: 7 days. I acknowledge that I performed a full physical examination on this patient within 24 hours of admiss ion to the rehabilitation unit. I believe the patient is a good candidate for comprehensive interdi sciplinary rehab care and is anticipated to make reasonable goals in a reasonable period of time as outlined above. Dictated By: CYNDEE SMITH/BO Conf#: [id number] DID#: [id number]
[2017-06-22] MEDS ORDERED: metFORMIN 500 MG TAB PO SCH (17:35)
[2017-06-22] MEDS: ACCU-CHEK XX SCH ×2 (17:50→20:46)
[2017-06-22 20:02] VITALS: BP 132/64; RESP 18
[2017-06-22] MEDS: ATORVASTATIN 40 MG TAB PO SCH (20:41)
[2017-06-22] MEDS: SENNA TAB PO SCH (20:42)
[2017-06-22] MEDS ORDERED: INSULIN GLARGINE [LANtus] 3 ML PEN SC SCH (21:00)
[2017-06-22] MEDS: HYDROCODONE/APAP (7.5/325) TAB PO PRN (22:42)
[2017-06-23 02:00] VITALS: BP 138/68; RESP 18
[2017-06-23 07:30] VITALS: BP 148/67; PULSE 60; RESP 20
[2017-06-23] MEDS: ACCU-CHEK XX SCH ×4 (07:45→21:00)
[2017-06-23] MEDS: LISINOPRIL 20 MG TAB PO SCH (08:19)
[2017-06-23] MEDS: DOCUSATE SODIUM 100 MG CAP PO SCH ×2 (08:20→20:54)
[2017-06-23] MEDS: LINAGLIPTIN 5 MG TABLET PO SCH (08:20)
[2017-06-23] MEDS: HYDROCODONE/APAP (7.5/325) TAB PO PRN ×2 (08:20→14:24)
--- NOTE | 2017-06-23 10:29 | CONS ---
Date/Time of Note Date/Time of Note DATE: 06/23/17 TIME: 10:28 Consult Date/Type/Reason Admit Date/Time Jun 21, 2017 at 21:00 Initial Consult Date Subjective Dizzy/ N/V this am Objective pulm-cta abd-soft min assist Vital Signs Date Time Temp Pulse Resp B/P Pulse Ox O2 Delivery O2 Flow Rate FiO2 06/23/17 07:30 97.7 60 20 148/67 97 Intake and Output 06/22/17 06/22/17 06/23/17 15:00 23:00 07:00 Intake Total 1000 ml 800 ml Output Total 400 ml Balance 600 ml 800 ml Results/Medications Result Diagram: 06/22/17 0638 06/22/1738 Results 24 hrs Laboratory Tests Test 06/22/17 17:24 06/22/17 20:45 06/23/17 07:45 Bedside Glucose 111 169 105 Medications Current Medications Senna (Senokot) 2 tab DAILY PRN PO CONSTIPATION; Start 06/22/17 at 00:00 Lisinopril (Zestril) 20 mg DAILY PO Last administered on 06/23/17 08:19; Admin Dose 20 MG; Start 06/22/17 at 09:00 Acetaminophen/ Hydrocodone Bitart ([place] (7.5-325)) 1 tab Q4H PRN PO PAIN Last administered on 06/23/17 08:20; Admin Dose 1 TAB; Start 06/22/17 at 00:00 Acetaminophen (Tylenol Tab) 650 mg Q6H PRN PO PAIN AND OR ELEVATED TEMP; Start 06/22/17 at 00:00 Atorvastatin Calcium (Lipitor) 40 mg DAILY@21 PO Last administered on 20:41; Admin Dose 40 MG; Start 06/22/17 at 21:00 Docusate Sodium (Colace) 100 mg BID PO Last administered on 06/23/17 08:20; Admin Dose 100 MG; Start 06/22/17 at 09:00 Senna (Senokot) 1 tab HS PO ; Start 06/22/17 at 21:00 Bisacodyl (Dulcolax Supp) 10 mg DAILY PRN [place] CONSTIPATION; Start 06/22/17 at 01 :00 Magnesium Hydroxide (Milk Of Mag) 30 ml BID PRN PO CONSTIPATION; Start at 01:00 Lactulose (Enulose) 20 gm DAILY PRN PO CONSTIPATION; Start 06/22/17 at 01:00 Miscellaneous Information 1 ea NOTE XX ; Start 06/22/17 at 13:00 Glucose (Glutose) 15 gm Q15M PRN PO DECREASED GLUCOSE; Start 06/22/17 at 13:00 Glucose (Glutose) 22.5 gm Q15M PRN PO DECREASED GLUCOSE; Start 06/22/17 at 13: 00 Dextrose (D50w Syringe) 25 ml Q15M PRN IV DECREASED GLUCOSE; Start 06/22/17 at 13:00 Dextrose (D50w Syringe) 50 ml Q15M PRN IV DECREASED GLUCOSE; Start 06/22/17 at 13:00 Glucagon (Glucagen) 1 mg Q15M PRN IM DECREASED GLUCOSE; Start 06/22/17 at 13:00 Glucose (Glutose) 15 gm Q15M PRN BUCCAL DECREASED GLUCOSE; Start 06/22/17 at 13 :00 Linagliptin (Tradjenta) 5 mg DAILY PO Last administered on 06/23/17t 08:20; Admin Dose 5 MG; Start 06/23/17 at 09:00 Assessment/Plan Additional Assessment/Plan Rehab- Right 5th metatarsal fracture with Cam boot placement; History of CVA. Activities as tolerated GI- check labs Hypertension. Hyperlipidemia. Diabetes mellitus. CYNDEE GRIFFITHS MD Jun 23, 2017 10:29
[2017-06-23 14:00] VITALS: BP 133/63; RESP 18
--- NOTE | 2017-06-23 16:13 | CONS ---
Date/Time of Note Date/Time of Note DATE: 06/23/17 TIME: 16:11 Assessment/Plan Assessment/Plan Additional Assessment/Plan 27-year-old female, who was transferred to ARU from [facility] for rehabilitation following acute right ankle fracture. 1. Acute closed nondisplaced fifth metatarsal base fracture of the right ankle. -Status post orthopedic evaluation with recommendation of conservative management with CAM boot and outpatient follow-up. -Continue PT/OT and acute rehab care. 2. Essential hypertension. Stable -Continue lisinopril 3. Type 2 diabetes-controlled with latest A1c 5.9. -Patient takes Januvia at home which we will continue as Tradjenta. -Blood sugar checks twice daily. 4. Constipation. Stable -Bowel regimen/stool softeners/laxatives PRN. DVT prophylaxis: Ambulation/SCD Consultation Date/Type/Reason Admit Date/Time Jun 21, 2017 at 21:00 Initial Consult Date Type of Consultation: INTERNAL MEDICINE 24 HR Interval Summary Free Text/Dictation c/o right ankle pain, otherwise BP stable, afebrile Exam/Review of Systems Vital Signs Vitals Vital Signs Date Time Temp Pulse Resp B/P Pulse Ox O2 Delivery O2 Flow Rate FiO2 06/23/17 14:00 97.9 64 18 133/63 98 06/23/17 07:30 Room Air Intake and Output 06/22/17 06/22/17 06/23/17 15:00 23:00 07:00 Intake Total 1000 ml 800 ml Output Total 400 ml Balance 600 ml 800 ml Exam Constitutional: alert Psych: no complaints Head: normocephalic Eyes: nl conjunctiva ENMT: nl external ears & nose Neck: non-tender, supple Respiratory: clear to auscultation, diminished breath sounds, normal air movement Cardiovascular: nl pulses, regular rate and rhythm Gastrointestinal: non-tender, soft Musculoskeletal: nl extremities to inspection, nl gait and stance, range of motion (limited in RLE< no edema ) Neurological: REMELT OPERATOR II-XII intact, nl mental status, nl speech, nl strength Skin: nl turgor Lymph: nl lymph nodes Results Result Diagram: 06/22/17 0638 06/22/17 0638 Results 24 hrs Laboratory Tests Test 06/22/17 17:24 06/22/17 20:45 06/23/17 07:45 06/23/17 12:08 Bedside Glucose 111 169 105 188 Medications Medications Current Medications Senna (Senokot) 2 tab DAILY PRN PO CONSTIPATION; Start 06/22/17 at 00:00 Lisinopril (Zestril) 20 mg DAILY PO Last administered on 06/23/17 08:19; Admin Dose 20 MG; Start 06/22/17 at 09:00 Acetaminophen/ Hydrocodone Bitart ([place] (7.5-325)) 1 tab Q4H PRN PO PAIN Last administered on 06/23/17 14:24; Admin Dose 1 TAB; Start 06/22/17 at 00:00 Acetaminophen (Tylenol Tab) 650 mg Q6H PRN PO PAIN AND OR ELEVATED TEMP; Start 06/22/17 at 00:00 Atorvastatin Calcium (Lipitor) 40 mg DAILY@21 PO Last administered on 20:41; Admin Dose 40 MG; Start 06/22/17 at 21:00 Docusate Sodium (Colace) 100 mg BID PO Last administered on 06/23/17 08:20; Admin Dose 100 MG; Start 06/22/17 at 09:00 Senna (Senokot) 1 tab HS PO ; Start 06/22/17 at 21:00 Bisacodyl (Dulcolax Supp) 10 mg DAILY PRN [place] CONSTIPATION; Start 06/22/17 at 01 :00 Magnesium Hydroxide (Milk Of Mag) 30 ml BID PRN PO CONSTIPATION; Start at 01:00 Lactulose (Enulose) 20 gm DAILY PRN PO CONSTIPATION; Start 06/22/17 at 01:00 Miscellaneous Information 1 ea NOTE XX ; Start 06/22/17 at 13:00 Glucose (Glutose) 15 gm Q15M PRN PO DECREASED GLUCOSE; Start 06/22/17 at 13:00 Glucose (Glutose) 22.5 gm Q15M PRN PO DECREASED GLUCOSE; Start 06/22/17 at 13: 00 Dextrose (D50w Syringe) 25 ml Q15M PRN IV DECREASED GLUCOSE; Start 06/22/17 at 13:00 Dextrose (D50w Syringe) 50 ml Q15M PRN IV DECREASED GLUCOSE; Start 06/22/17 at 13:00 Glucagon (Glucagen) 1 mg Q15M PRN IM DECREASED GLUCOSE; Start 10/5/17 at 13:00 Glucose (Glutose) 15 gm Q15M PRN BUCCAL DECREASED GLUCOSE; Start 06/22/17 at 13 :00 Linagliptin (Tradjenta) 5 mg DAILY PO Last administered on 06/23/17t 08:20; Admin Dose 5 MG; Start 06/23/17 at 09:00 NIMCO WATERMAN MD Jun 23, 2017 16:13
[2017-06-23 16:57] LABS: ADD UMIC YES; UR ASCORBIC ACID NEGATIVE (NEGATIVE); UR BACTERIA FEW /HPF (NONE SEEN); UR BILIRUBIN (Dip) NEGATIVE (NEGATIVE); UR BLOOD (Dip) NEGATIVE (NEGATIVE); UR CLARITY SLIGHTLY CLOUDY (CLEAR); UR COLOR YELLOW (YELLOW); UR GLUCOSE (Dip) NEGATIVE (NEGATIVE); UR KETONES (Dip) 1+ mg/dL (NEGATIVE); UR LEUKOCYTE ESTERASE (Dip) 2+ Leu/ul (NEGATIVE); UR MUCUS MODERATE /HPF (NONE SEEN); UR NITRITE (Dip) NEGATIVE (NEGATIVE); UR RBC 2 /HPF (0-5); UR SPECIFIC GRAVITY (Dip) 1.017 (1.003-1.030); UR SQUAMOUS EPITHELIAL CELL FEW /HPF (FEW); UR TOTAL PROTEIN (Dip) 1+ mg/dl (NEGATIVE); UR UROBILINOGEN (Dip) NEGATIVE (NEGATIVE)
[2017-06-23 19:59] VITALS: BP 136/63; RESP 18
[2017-06-23] MEDS: SENNA TAB PO SCH (20:54)
[2017-06-23] MEDS: ATORVASTATIN 40 MG TAB PO SCH (20:54)
[2017-06-24 02:00] VITALS: BP 132/65; RESP 18
[2017-06-24 07:05] VITALS: BP 129/59; PULSE 62; RESP 18
[2017-06-24] MEDS: ACCU-CHEK XX SCH ×4 (07:05→20:29)
--- NOTE | 2017-06-24 08:04 | CONS ---
Date/Time of Note Date/Time of Note DATE: 06/24/17 TIME: 08:04 Consult Date/Type/Reason Admit Date/Time Jun 21, 2017 at 21:00 Type of Consultation: INTERNAL MEDICINE Objective pulm-cta cga ambulation Vital Signs Date Time Temp Pulse Resp B/P Pulse Ox O2 Delivery O2 Flow Rate FiO2 06/24/17 02:00 98.2 73 18 132/65 95 06/23/17 07:30 Room Air Intake and Output 06/23/17 06/23/17 06/24/17 15:00 23:00 07:00 Intake Total 640 ml 650 ml Balance 640 ml 650 ml Results/Medications Result Diagram: 06/22/17 0638 06/22/17 0638 Results 24 hrs Laboratory Tests Test 06/23/17 12:08 06/23/17 16:30 06/23/17 16:45 06/23/17 20:59 Bedside Glucose 188 198 141 Urine Color YELLOW Urine Clarity SLIGHTLY CLOUDY A Urine pH 5.0 Urine Specific [place] 1.017 Urine Ketones 1+ H Urine Nitrite NEGATIVE Urine Bilirubin NEGATIVE Urine Urobilinogen NEGATIVE Urine Leukocyte Esterase 2+ H Urine Microscopic RBC 2 Urine Microscopic WBC 71 H Urine Squamous Epithelial Cells FEW Urine Bacteria FEW A Urine Mucus MODERATE Urine Hemoglobin NEGATIVE Urine Glucose NEGATIVE Urine Total Protein 1+ H Test 06/24/17 07:50 Bedside Glucose 112 Medications Current Medications Senna (Senokot) 2 tab DAILY PRN PO CONSTIPATION; Start 06/22/17 at 00:00 Lisinopril (Zestril) 20 mg DAILY PO Last administered on 06/23/17 08:19; Admin Dose 20 MG; Start 06/22/17 at 09:00 Acetaminophen/ Hydrocodone Bitart ([place] (7.5-325)) 1 tab Q4H PRN PO PAIN Last administered on 06/23/17 14:24; Admin Dose 1 TAB; Start 06/22/17 at 00:00 Acetaminophen (Tylenol Tab) 650 mg Q6H PRN PO PAIN AND OR ELEVATED TEMP; Start 06/22/17 at 00:00 Atorvastatin Calcium (Lipitor) 40 mg DAILY@21 PO Last administered on 20:54; Admin Dose 40 MG; Start 06/22/17 at 21:00 Docusate Sodium (Colace) 100 mg BID PO Last administered on 06/23/17 20:54; Admin Dose 100 MG; Start 06/22/17 at 09:00 Senna (Senokot) 1 tab HS PO Last administered on 06/23/17 20:54; Admin Dose 1 TAB; Start 06/22/17 at 21:00 Bisacodyl (Dulcolax Supp) 10 mg DAILY PRN [place] CONSTIPATION; Start 06/22/17 at 01 :00 Magnesium Hydroxide (Milk Of Mag) 30 ml BID PRN PO CONSTIPATION; Start at 01:00 Lactulose (Enulose) 20 gm DAILY PRN PO CONSTIPATION; Start 06/22/17 at 01:00 Miscellaneous Information 1 ea NOTE XX ; Start 06/22/17 at 13:00 Glucose (Glutose) 15 gm Q15M PRN PO DECREASED GLUCOSE; Start 06/22/17 at 13:00 Glucose (Glutose) 22.5 gm Q15M PRN PO DECREASED GLUCOSE; Start 06/22/17 at 13: 00 Dextrose (D50w Syringe) 25 ml Q15M PRN IV DECREASED GLUCOSE; Start 06/22/17 at 13:00 Dextrose (D50w Syringe) 50 ml Q15M PRN IV DECREASED GLUCOSE; Start 06/22/17 at 13:00 Glucagon (Glucagen) 1 mg Q15M PRN IM DECREASED GLUCOSE; Start 06/22/17 at 13:00 Glucose (Glutose) 15 gm Q15M PRN BUCCAL DECREASED GLUCOSE; Start 06/22/17 at 13 :00 Linagliptin (Tradjenta) 5 mg DAILY PO Last administered on 06/23/17 08:20; Admin Dose 5 MG; Start 06/23/17 at 09:00 Assessment/Plan Additional Assessment/Plan Rehab- Right 5th metatarsal fracture with Cam boot placement; History of CVA. Progressing with rehab Hypertension. Hyperlipidemia. Diabetes mellitus. CYNDEE GRIFFITHS MD Jun 24, 2017 08:04
[2017-06-24] MEDS: HYDROCODONE/APAP (7.5/325) TAB PO PRN ×2 (08:19→20:27)
[2017-06-24] MEDS: LINAGLIPTIN 5 MG TABLET PO SCH (08:19)
[2017-06-24] MEDS: DOCUSATE SODIUM 100 MG CAP PO SCH ×2 (08:19→20:29)
[2017-06-24] MEDS: LISINOPRIL 20 MG TAB PO SCH (08:23)
--- NOTE | 2017-06-24 15:36 | CONS ---
Date/Time of Note Date/Time of Note DATE: 06/24/17 TIME: 15:34 Assessment/Plan Assessment/Plan Additional Assessment/Plan 1. Acute closed nondisplaced fifth metatarsal base fracture of the right ankle. -Status post orthopedic evaluation with recommendation of conservative management with CAM boot and outpatient follow-up. -Continue PT/OT and acute rehab care. 2. Essential hypertension. Stable -Continue lisinopril 3. Type 2 diabetes-controlled with latest A1c 5.9. -Patient takes Januvia at home which we will continue as Tradjenta. -Blood sugar checks twice daily. 4. Constipation. Stable -Bowel regimen/stool softeners/laxatives PRN. DVT prophylaxis: Ambulation/SCD Consultation Date/Type/Reason Admit Date/Time Jun 21, 2017 at 21:00 Type of Consultation: INTERNAL MEDICINE Exam/Review of Systems Vital Signs Vitals Vital Signs Date Time Temp Pulse Resp B/P Pulse Ox O2 Delivery O2 Flow Rate FiO2 06/24/17 07:05 97.0 62 18 129/59 97 Room Air Intake and Output 06/23/17 06/23/17 06/24/17 15:00 23:00 07:00 Intake Total 640 ml 650 ml Balance 640 ml 650 ml Exam Constitutional: alert, oriented Psych: nl mood/affect, no complaints Head: atraumatic, normocephalic Eyes: EOMI, nl conjunctiva ENMT: nl external ears & nose, nl lips & teeth Neck: non-tender, supple Respiratory: clear to auscultation, diminished breath sounds, normal air movement Cardiovascular: nl pulses, regular rate and rhythm Gastrointestinal: non-tender, soft Musculoskeletal: nl extremities to inspection, nl gait and stance Extremities: normal pulses Neurological: COP WINDER II-XII intact, nl mental status, nl speech, nl strength Skin: nl turgor Lymph: nl lymph nodes Results Result Diagram: 06/22/17 0638 06/22/1738 Results 24 hrs Laboratory Tests Test 06/23/17 16:30 06/23/17 16:45 06/23/17 20:59 06/24/17 07:50 Urine Color YELLOW Urine Clarity SLIGHTLY CLOUDY A Urine pH 5.0 Urine Specific [place] 1.017 Urine Ketones 1+ H Urine Nitrite NEGATIVE Urine Bilirubin NEGATIVE Urine Urobilinogen NEGATIVE Urine Leukocyte Esterase 2+ H Urine Microscopic RBC 2 Urine Microscopic WBC 71 H Urine Squamous Epithelial Cells FEW Urine Bacteria FEW A Urine Mucus MODERATE Urine Hemoglobin NEGATIVE Urine Glucose NEGATIVE Urine Total Protein 1+ H Bedside Glucose 198 141 112 Test 06/24/17 11:53 Bedside Glucose 156 Medications Medications Current Medications Senna (Senokot) 2 tab DAILY PRN PO CONSTIPATION; Start 06/22/17 at 00:00 Lisinopril (Zestril) 20 mg DAILY PO Last administered on 06/24/17 08:23; Admin Dose 20 MG; Start 06/22/17 at 09:00 Acetaminophen/ Hydrocodone Bitart ([place] (7.5-325)) 1 tab Q4H PRN PO PAIN Last administered on 06/24/17 08:19; Admin Dose 1 TAB; Start 06/22/17 at 00:00 Acetaminophen (Tylenol Tab) 650 mg Q6H PRN PO PAIN AND OR ELEVATED TEMP; Start 06/22/17 at 00:00 Atorvastatin Calcium (Lipitor) 40 mg DAILY@21 PO Last administered on 20:54; Admin Dose 40 MG; Start 06/22/17 at 21:00 Docusate Sodium (Colace) 100 mg BID PO Last administered on 06/24/17 08:19; Admin Dose 100 MG; Start 06/22/17 at 09:00 Senna (Senokot) 1 tab HS PO Last administered on 06/23/17 20:54; Admin Dose 1 TAB; Start 06/22/17 at 21:00 Bisacodyl (Dulcolax Supp) 10 mg DAILY PRN [place] CONSTIPATION; Start 06/22/17 at 01 :00 Magnesium Hydroxide (Milk Of Mag) 30 ml BID PRN PO CONSTIPATION; Start at 01:00 Lactulose (Enulose) 20 gm DAILY PRN PO CONSTIPATION; Start 06/22/17 at 01:00 Miscellaneous Information 1 ea NOTE XX ; Start 06/22/17 at 13:00 Glucose (Glutose) 15 gm Q15M PRN PO DECREASED GLUCOSE; Start 06/22/17 at 13:00 Glucose (Glutose) 22.5 gm Q15M PRN PO DECREASED GLUCOSE; Start 06/22/17 at 13: 00 Dextrose (D50w Syringe) 25 ml Q15M PRN IV DECREASED GLUCOSE; Start 06/22/17 at 13:00 Dextrose (D50w Syringe) 50 ml Q15M PRN IV DECREASED GLUCOSE; Start 06/22/17 at 13:00 Glucagon (Glucagen) 1 mg Q15M PRN IM DECREASED GLUCOSE; Start 06/22/17 at 13:00 Glucose (Glutose) 15 gm Q15M PRN BUCCAL DECREASED GLUCOSE; Start 06/22/17 at 13 :00 Linagliptin (Tradjenta) 5 mg DAILY PO Last administered on 06/24/17t 08:19; Admin Dose 5 MG; Start 06/23/17 at 09:00 NIMCO WATERMAN MD Jun 24, 2017 15:36
[2017-06-24 20:00] VITALS: BP 158/67; PULSE 68; RESP 16
[2017-06-24] MEDS: SENNA TAB PO SCH (20:29)
[2017-06-24] MEDS: ATORVASTATIN 40 MG TAB PO SCH (20:29)
[2017-06-25 05:40] VITALS: BP 146/68; PULSE 60; RESP 16
[2017-06-25] MEDS: ACCU-CHEK XX SCH ×3 (07:05→20:10)
[2017-06-25 08:30] VITALS: BP 144/63; PULSE 63; RESP 16
[2017-06-25] MEDS: LINAGLIPTIN 5 MG TABLET PO SCH (09:06)
[2017-06-25] MEDS: DOCUSATE SODIUM 100 MG CAP PO SCH ×2 (09:06→20:10)
[2017-06-25] MEDS: LISINOPRIL 20 MG TAB PO SCH (09:06)
[2017-06-25] MEDS: HYDROCODONE/APAP (7.5/325) TAB PO PRN ×2 (11:48→16:59)
[2017-06-25 14:00] VITALS: BP 111/55; PULSE 68; RESP 16
--- NOTE | 2017-06-25 17:35 | CONS ---
Date/Time of Note Date/Time of Note DATE: 06/25/17 TIME: 17:34 Assessment/Plan Assessment/Plan Additional Assessment/Plan 1. Acute closed nondisplaced fifth metatarsal base fracture of the right ankle. -Status post orthopedic evaluation with recommendation of conservative management with CAM boot and outpatient follow-up. -Continue PT/OT and acute rehab care. 2. Essential hypertension. Stable -Continue lisinopril 3. Type 2 diabetes-controlled with latest A1c 5.9. -Patient takes Januvia at home which we will continue as Tradjenta. -Blood sugar checks twice daily. 4. Constipation. Stable -Bowel regimen/stool softeners/laxatives PRN. DVT prophylaxis: Ambulation/SCD Consultation Date/Type/Reason Admit Date/Time Jun 21, 2017 at 21:00 Type of Consultation: INTERNAL MEDICINE 24 HR Interval Summary Free Text/Dictation c/o right ankle pain but able to participate in PT Exam/Review of Systems Vital Signs Vitals Vital Signs Date Time Temp Pulse Resp B/P Pulse Ox O2 Delivery O2 Flow Rate FiO2 06/25/17 14:00 98.7 68 16 111/55 99 Room Air Intake and Output 06/24/17 06/24/17 06/25/17 15:00 23:00 07:00 Intake Total 600 ml 200 ml Balance 600 ml 200 ml Exam Constitutional: alert Respiratory: clear to auscultation, diminished breath sounds, normal air movement Cardiovascular: nl pulses, regular rate and rhythm Gastrointestinal: non-tender, soft Musculoskeletal: nl extremities to inspection, nl gait and stance, range of motion (limited in RLE< no edema ) Neurological: HEEL SHAVER II-XII intact, nl mental status, nl speech, nl strength Results Result Diagram: 06/22/1738 06/22/1738 Results 24 hrs Laboratory Tests Test 06/24/17 20:26 06/25/17 07:42 06/25/17 11:42 Bedside Glucose 159 134 176 Medications Medications Current Medications Senna (Senokot) 2 tab DAILY PRN PO CONSTIPATION; Start 06/22/17 at 00:00 Lisinopril (Zestril) 20 mg DAILY PO Last administered on 06/25/17t 09:06; Admin Dose 20 MG; Start 06/22/17 at 09:00 Acetaminophen/ Hydrocodone Bitart ([place] (7.5-325)) 1 tab Q4H PRN PO PAIN Last administered on 06/25/17 16:59; Admin Dose 1 TAB; Start 06/22/17 at 00:00 Acetaminophen (Tylenol Tab) 650 mg Q6H PRN PO PAIN AND OR ELEVATED TEMP; Start 06/22/17 at 00:00 Atorvastatin Calcium (Lipitor) 40 mg DAILY@21 PO Last administered on 20:54; Admin Dose 40 MG; Start 06/22/17 at 21:00 Docusate Sodium (Colace) 100 mg BID PO Last administered on 06/25/17 09:06; Admin Dose 100 MG; Start 06/22/17 at 09:00 Senna (Senokot) 1 tab HS PO Last administered on 06/23/17 20:54; Admin Dose 1 TAB; Start 06/22/17 at 21:00 Bisacodyl (Dulcolax Supp) 10 mg DAILY PRN [place] CONSTIPATION; Start 06/22/17 at 01 :00 Magnesium Hydroxide (Milk Of Mag) 30 ml BID PRN PO CONSTIPATION; Start at 01:00 Lactulose (Enulose) 20 gm DAILY PRN PO CONSTIPATION; Start 06/22/17 at 01:00 Miscellaneous Information 1 ea NOTE XX ; Start 06/22/17 at 13:00 Glucose (Glutose) 15 gm Q15M PRN PO DECREASED GLUCOSE; Start 06/22/17 at 13:00 Glucose (Glutose) 22.5 gm Q15M PRN PO DECREASED GLUCOSE; Start 06/22/17 at 13: 00 Dextrose (D50w Syringe) 25 ml Q15M PRN IV DECREASED GLUCOSE; Start 06/22/17 at 13:00 Dextrose (D50w Syringe) 50 ml Q15M PRN IV DECREASED GLUCOSE; Start 06/22/17 at 13:00 Glucagon (Glucagen) 1 mg Q15M PRN IM DECREASED GLUCOSE; Start 06/22/17 at 13:00 Glucose (Glutose) 15 gm Q15M PRN BUCCAL DECREASED GLUCOSE; Start 06/22/17 at 13 :00 Linagliptin (Tradjenta) 5 mg DAILY PO Last administered on 06/25/17 09:06; Admin Dose 5 MG; Start 06/23/17 at 09:00 Diagnostic Test (Pha) (Accu-Chek) 1 ea BID XX ; Start 06/25/17 at 21:00 NIMCO WATERMAN MD Jun 25, 2017 17:35
[2017-06-25 19:41] VITALS: BP 145/63; RESP 18
[2017-06-25] MEDS: LACTULOSE 30ML CUP PO PRN (20:09)
[2017-06-25] MEDS: ATORVASTATIN 40 MG TAB PO SCH (20:10)
[2017-06-25] MEDS: SENNA TAB PO SCH (20:10)
[2017-06-26 02:17] VITALS: BP 121/61; RESP 18
[2017-06-26 07:04] LABS: BASOPHIL # 0.1 10^3/ul (0.0-0.1); BASOPHILS % 0.8 % (0.0-2.0); EOSINOPHILS # 0.3 10^3/ul (0.0-0.5); EOSINOPHILS % 4.8 % (0.0-7.0); HEMATOCRIT 38.6 % (37.0-47.0); HEMOGLOBIN 13.3 g/dl (12.0-16.0); LYMPHOCYTES # 2.5 10^3/ul (0.8-2.9); LYMPHOCYTES % 40.1 % (15.0-51.0); MEAN CORPUSCULAR HEMOGLOBIN 31.2 pg (29.0-33.0); MEAN CORPUSCULAR HGB CONC 34.5 g/dl (32.0-37.0); MEAN CORPUSCULAR VOLUME 90.6 fl (82.0-101.0); MEAN PLATELET VOLUME 9.4 fl (7.4-10.4); MONOCYTE # 0.6 10^3/ul (0.3-0.9); MONOCYTES % 9.3 % (0.0-11.0); NEUTROPHIL # 2.8 10^3/ul (1.6-7.5); NEUTROPHILS % 44.8 % (39.0-77.0); PLATELET COUNT 232 10^3/UL (140-415); RED BLOOD COUNT 4.26 10^6/ul (4.20-5.40); RED CELL DISTRIBUTION WIDTH 11.7 % (11.5-14.5); WHITE BLOOD COUNT 6.2 10^3/ul (4.8-10.8)
[2017-06-26 07:24] LABS: INR 0.97; PROTIME 12.9 Sec (12.2-14.2)
[2017-06-26 07:25] LABS: PARTIAL THROMBOPLASTIN TIME 31.2 Sec (25.0-35.0)
[2017-06-26 07:29] LABS: CALCIUM 9.4 mg/dl (8.4-10.2); CREATININE 0.95 mg/dl (0.44-1.00)
[2017-06-26 07:30] VITALS: BP 137/64; RESP 18
[2017-06-26] MEDS: ACCU-CHEK XX SCH ×2 (08:03→20:38)
[2017-06-26] MEDS: DOCUSATE SODIUM 100 MG CAP PO SCH ×2 (08:37→20:34)
[2017-06-26] MEDS: HYDROCODONE/APAP (7.5/325) TAB PO PRN ×4 (08:38→22:05)
[2017-06-26] MEDS: LISINOPRIL 20 MG TAB PO SCH (08:38)
[2017-06-26] MEDS: LINAGLIPTIN 5 MG TABLET PO SCH (08:38)
[2017-06-26] MEDS: LACTULOSE 30ML CUP PO PRN (08:39)
--- NOTE | 2017-06-26 11:53 | CONS ---
Date/Time of Note Date/Time of Note DATE: 06/26/17 TIME: 11:53 Consult Date/Type/Reason Admit Date/Time Jun 21, 2017 at 21:00 Type of Consultation: INTERNAL MEDICINE Objective Vital Signs Date Time Temp Pulse Resp B/P Pulse Ox O2 Delivery O2 Flow Rate FiO2 06/26/17 07:30 97.8 62 18 137/64 96 06/25/17 14:00 Room Air Intake and Output 06/25/17 06/25/17 06/26/17 15:00 23:00 07:00 Intake Total 400 ml 640 ml Output Total 300 ml Balance 400 ml 340 ml INTERDISCIPLINARY TEAM CONFERENCE BOWEL- Cont BLADDER-Cont SKIN- intact OT- DRESSING-sba BATHING-sba TOILETING-sba PT- BED MOBILITY-sba TRANSFERS-sba AMBULATION-cga 100 A/P- Interdisciplinary team conference held today. Please see interdisciplinary sheet. Working toward d.c. on 06/29 with post discharge follow up of physical therapy, occupational therapy. Results/Medications Result Diagram: 06/26/17 0636 06/26/17 0636 Results 24 hrs Laboratory Tests Test 06/25/17 20:08 06/26/17 06:36 06/26/17 07:38 Bedside Glucose 208 122 White Blood Count 6.2 Red Blood Count 4.26 Hemoglobin 13.3 Hematocrit 38.6 Mean Corpuscular Volume 90.6 Mean Corpuscular Hemoglobin 31.2 Mean Corpuscular Hemoglobin Concent 34.5 Red Cell Distribution Width 11.7 Platelet Count 232 Mean Platelet Volume 9.4 Neutrophils % 44.8 Lymphocytes % 40.1 Monocytes % 9.3 Eosinophils % 4.8 Basophils % 0.8 Nucleated Red Blood Cells % 0.0 Neutrophils # 2.8 Lymphocytes # 2.5 Monocytes # 0.6 Eosinophils # 0.3 Basophils # 0.1 Nucleated Red Blood Cells # 0.0 Prothrombin Time 12.9 Prothrombin Time Ratio 1.0 INR International Normalized Ratio 0.97 Activated Partial Thromboplast Time 31.2 Sodium Level 140 Potassium Level 4.0 Chloride Level 104 Carbon Dioxide Level 29 Anion Gap 11 Blood Urea Nitrogen 19 Creatinine 0.95 Glucose Level 124 Calcium Level 9.4 Medications Current Medications Senna (Senokot) 2 tab DAILY PRN PO CONSTIPATION Last administered on 06/26/17t 08:37; Admin Dose 2 TAB; Start 06/22/17 at 00:00 Lisinopril (Zestril) 20 mg DAILY PO Last administered on 06/26/17 08:38; Admin Dose 20 MG; Start 06/22/17 at 09:00 Acetaminophen/ Hydrocodone Bitart ([place] (7.5-325)) 1 tab Q4H PRN PO PAIN Last administered on 06/26/17 08:38; Admin Dose 1 TAB; Start 06/22/17 at 00:00 Acetaminophen (Tylenol Tab) 650 mg Q6H PRN PO PAIN AND OR ELEVATED TEMP; Start 06/22/17 at 00:00 Atorvastatin Calcium (Lipitor) 40 mg DAILY@21 PO Last administered on 20:10; Admin Dose 40 MG; Start 06/22/17 at 21:00 Docusate Sodium (Colace) 100 mg BID PO Last administered on 06/26/17 08:37; Admin Dose 100 MG; Start 06/22/17 at 09:00 Senna (Senokot) 1 tab HS PO Last administered on 06/25/17 20:10; Admin Dose 1 TAB; Start 06/22/17 at 21:00 Bisacodyl (Dulcolax Supp) 10 mg DAILY PRN [place] CONSTIPATION; Start 06/22/17 at 01 :00 Magnesium Hydroxide (Milk Of Mag) 30 ml BID PRN PO CONSTIPATION; Start at 01:00 Lactulose (Enulose) 20 gm DAILY PRN PO CONSTIPATION Last administered on 08:39; Admin Dose 20 GM; Start 06/22/17 at 01:00 Miscellaneous Information 1 ea NOTE XX ; Start 06/22/17 at 13:00 Glucose (Glutose) 15 gm Q15M PRN PO DECREASED GLUCOSE; Start 06/22/17 at 13:00 Glucose (Glutose) 22.5 gm Q15M PRN PO DECREASED GLUCOSE; Start 06/22/17 at 13: 00 Dextrose (D50w Syringe) 25 ml Q15M PRN IV DECREASED GLUCOSE; Start 06/22/17 at 13:00 Dextrose (D50w Syringe) 50 ml Q15M PRN IV DECREASED GLUCOSE; Start 06/22/17 at 13:00 Glucagon (Glucagen) 1 mg Q15M PRN IM DECREASED GLUCOSE; Start 10/5/17 at 13:00 Glucose (Glutose) 15 gm Q15M PRN BUCCAL DECREASED GLUCOSE; Start 06/22/17 at 13 :00 Linagliptin (Tradjenta) 5 mg DAILY PO Last administered on 06/26/17 08:38; Admin Dose 5 MG; Start 06/23/17 at 09:00 Diagnostic Test (Pha) (Accu-Chek) 1 ea BID XX Last administered on 06/26/17 08 :03; Admin Dose 1 EA; Start 06/25/17 at 21:00 CYNDEE GRIFFITHS MD Jun 26, 2017 11:53
--- NOTE | 2017-06-26 13:34 | PN ---
Date/Time of Note Date/Time of Note DATE: 06/26/17 TIME: 13:32 Assessment/Plan VTE Prophylaxis VTE Prophylaxis Intervention: ambulation Lines/Catheters Urinary Cath still in place: No Assessment/Plan Chief Complaint/Hosp Course 27-year-old female, who was transferred to ARU from [facility] for rehabilitation following acute right ankle fracture. 1. Acute closed nondisplaced fifth metatarsal base fracture of the right ankle. -Status post orthopedic evaluation with recommendation of conservative management with CAM boot and outpatient follow-up. -Continue PT/OT. 2. Essential hypertension. Stable -Continue lisinopril 3. Type 2 diabetes-controlled with latest A1c 5.9. -Accuchecks/ISS.Continue Tradjenta. 4. Constipation. Stable -Bowel regimen/stool softeners/laxatives PRN. Plan: Patient has been on Lipitor from [facility]. There is no lipid panel available in medical records. However, she denies a history of hyperlipidemia. Therefore , we are going to obtain a lipid panel and will adjust statin dose as indicated. DVT prophylaxis: Ambulation/SCD Patient was seen in collaboration with . Problems: Subjective 24 Hr Interval Summary Free Text/Dictation No acute distress. Participates in PT. Exam/Review of Systems Vital Signs Vitals Vital Signs Date Time Temp Pulse Resp B/P Pulse Ox O2 Delivery O2 Flow Rate FiO2 06/26/17 07:30 97.8 62 18 137/64 96 06/25/17 14:00 Room Air Intake and Output 06/25/17 06/25/17 06/26/17 15:00 23:00 07:00 Intake Total 400 ml 640 ml Output Total 300 ml Balance 400 ml 340 ml Exam General: Well developed,adequately built, not in any acute distress . HEENT: Normocephalic, Atraumatic, No laceration or hematoma; Eyes: PEERL, Conjunctiva clear, Anicteric sclera Neck: Supple without any lymphadenopathy, nontender, no JVD, no carotid bruits, trachea midline, no thyromegaly Cardiac: S1, S2 auscultated, regular rhythm and rate, no mumurs or gallop Pulmonary: Normal respiratory effort. Chest clear to auscultation bilaterally, no adventitious breath sounds GI: Abdomen normal to inspection. Soft, non tender, non- distended, no masses, no rebound tenderness or guarding. Bowel sounds active on all four quadrants Genitourinary: Deferred Extremities: CAM boot on right lower extremity. No cyanosis, clubbing, or edema. Pulses [2+] bilaterally. Full ROM on all four extremities. No focal weakness appreciated. Neurologic: Alert to person, place, time, and situation. Affect appropriate, intact sensation. Skin: Clean,dry, and intact. No ecchymosis, no rashes, or lesions Results Result Diagram: 06/26/1736 06/26/17 0636 Results 24 hrs Laboratory Tests Test 06/25/17 20:08 06/26/17 06:36 06/26/17 07:38 Bedside Glucose 208 122 White Blood Count 6.2 Red Blood Count 4.26 Hemoglobin 13.3 Hematocrit 38.6 Mean Corpuscular Volume 90.6 Mean Corpuscular Hemoglobin 31.2 Mean Corpuscular Hemoglobin Concent 34.5 Red Cell Distribution Width 11.7 Platelet Count 232 Mean Platelet Volume 9.4 Neutrophils % 44.8 Lymphocytes % 40.1 Monocytes % 9.3 Eosinophils % 4.8 Basophils % 0.8 Nucleated Red Blood Cells % 0.0 Neutrophils # 2.8 Lymphocytes # 2.5 Monocytes # 0.6 Eosinophils # 0.3 Basophils # 0.1 Nucleated Red Blood Cells # 0.0 Prothrombin Time 12.9 Prothrombin Time Ratio 1.0 INR International Normalized Ratio 0.97 Activated Partial Thromboplast Time 31.2 Sodium Level 140 Potassium Level 4.0 Chloride Level 104 Carbon Dioxide Level 29 Anion Gap 11 Blood Urea Nitrogen 19 Creatinine 0.95 Glucose Level 124 Calcium Level 9.4 Medications Medications Current Medications Senna (Senokot) 2 tab DAILY PRN PO CONSTIPATION Last administered on 06/26/17 08:37; Admin Dose 2 TAB; Start 06/22/17 at 00:00 Lisinopril (Zestril) 20 mg DAILY PO Last administered on 06/26/17 08:38; Admin Dose 20 MG; Start 06/22/17 at 09:00 Acetaminophen/ Hydrocodone Bitart ([place] (7.5-325)) 1 tab Q4H PRN PO PAIN Last administered on 06/26/17 08:38; Admin Dose 1 TAB; Start 06/22/17 at 00:00 Acetaminophen (Tylenol Tab) 650 mg Q6H PRN PO PAIN AND OR ELEVATED TEMP; Start 06/22/17 at 00:00 Atorvastatin Calcium (Lipitor) 40 mg DAILY@21 PO Last administered on 20:10; Admin Dose 40 MG; Start 06/22/17 at 21:00 Docusate Sodium (Colace) 100 mg BID PO Last administered on 06/26/17 08:37; Admin Dose 100 MG; Start 06/22/17 at 09:00 Senna (Senokot) 1 tab HS PO Last administered on 06/25/17 20:10; Admin Dose 1 TAB; Start 06/22/17 at 21:00 Bisacodyl (Dulcolax Supp) [address] [place] CONSTIPATION; Start 06/22/17 at 01 :00 Magnesium Hydroxide (Milk Of Mag) 30 ml BID PRN PO CONSTIPATION; Start at 01:00 Lactulose (Enulose) 20 gm DAILY PRN PO CONSTIPATION Last administered on 08:39; Admin Dose 20 GM; Start 06/22/17 at 01:00 Miscellaneous Information 1 ea NOTE XX ; Start 06/22/17 at 13:00 Glucose (Glutose) 15 gm Q15M PRN PO DECREASED GLUCOSE; Start 06/22/17 at 13:00 Glucose (Glutose) 22.5 gm Q15M PRN PO DECREASED GLUCOSE; Start 06/22/17 at 13: 00 Dextrose (D50w Syringe) 25 ml Q15M PRN IV DECREASED GLUCOSE; Start 06/22/17 at 13:00 Dextrose (D50w Syringe) 50 ml Q15M PRN IV DECREASED GLUCOSE; Start 06/22/17 at 13:00 Glucagon (Glucagen) 1 mg Q15M PRN IM DECREASED GLUCOSE; Start 06/22/17 at 13:00 Glucose (Glutose) 15 gm Q15M PRN BUCCAL DECREASED GLUCOSE; Start 06/22/17 at 13 :00 Linagliptin (Tradjenta) 5 mg DAILY PO Last administered on 06/26/17 08:38; Admin Dose 5 MG; Start 06/23/17 at 09:00 Diagnostic Test (Pha) (Accu-Chek) 1 ea BID XX Last administered on 06/26/17 08 :03; Admin Dose 1 EA; Start 06/25/17 at 21:00 REINA HEAD NP Jun 26, 2017 13:34
[2017-06-26 14:00] VITALS: BP 147/65; RESP 18
[2017-06-26] MEDS: INSULIN ASPART [NOVOLOG] 3 ML PEN SC SCH ×2 (17:45→20:37)
[2017-06-26 20:00] VITALS: BP 126/60; RESP 18
[2017-06-26] MEDS: ATORVASTATIN 40 MG TAB PO SCH (20:34)
[2017-06-26] MEDS: SENNA TAB PO SCH (20:35)
[2017-06-27 02:00] VITALS: BP 133/61; RESP 18
[2017-06-27] MEDS ORDERED: ACCU-CHEK XX SCH ×2 (02:00)
[2017-06-27 06:54] LABS: CHOL/HDL RATIO 5.1 RATIO
[2017-06-27 07:00] VITALS: BP 151/69; RESP 18
[2017-06-27] MEDS: INSULIN ASPART [NOVOLOG] 3 ML PEN SC SCH ×3 (07:35→17:35)
[2017-06-27] MEDS: DOCUSATE SODIUM 100 MG CAP PO SCH (08:27)
[2017-06-27] MEDS: LISINOPRIL 20 MG TAB PO SCH (08:28)
[2017-06-27] MEDS: LINAGLIPTIN 5 MG TABLET PO SCH (08:28)
[2017-06-27] MEDS: ACCU-CHEK XX SCH (08:28)
--- NOTE | 2017-06-27 11:27 | CONS ---
Date/Time of Note Date/Time of Note DATE: 06/27/17 TIME: 11:25 Assessment/Plan Assessment/Plan Chief Complaint/Hosp Course 27-year-old female, who was transferred to ARU from [facility] for rehabilitation following acute right ankle fracture. 1. Acute closed nondisplaced fifth metatarsal base fracture of the right ankle. -Status post orthopedic evaluation with recommendation of conservative management with CAM boot and outpatient follow-up. -Continue PT/OT. 2. Essential hypertension. Stable -Continue lisinopril 3. Type 2 diabetes-controlled with latest A1c 5.9. -Accuchecks/ISS.Continue Tradjenta as pharmacy replacement for Januvia in-house. 4. Constipation. Stable -Bowel regimen/stool softeners/laxatives PRN. 5. Urine culture with lactobacillus species. This is more likely contaminant with vaginal balta. Patient is asymptomatic and does not require any antimicrobial at this time. Plan: For discharge planning today. Medicine recommendation on discharge: Patient takes Januvia at home and she can continue Januvia upon discharge. There is no need to continue Tradjenta upon discharge. Follow-up with orthopedics in 2 weeks. Bowel regimen with stool softeners. DVT prophylaxis: Ambulation/SCD Patient was seen in collaboration with . Problems: Consultation Date/Type/Reason Admit Date/Time Jun 21, 2017 at 21:00 Initial Consult Date Type of Consultation: INTERNAL MEDICINE 24 HR Interval Summary Free Text/Dictation Discharge planning today. Patient is afebrile. She denies any chills. She denies dysuria, hematuria, frequency or urgency. Exam/Review of Systems Vital Signs Vitals Vital Signs Date Time Temp Pulse Resp B/P Pulse Ox O2 Delivery O2 Flow Rate FiO2 06/27/17 07:00 98.7 61 18 151/69 94 06/25/17 14:00 Room Air Intake and Output 06/26/17 06/26/17 06/27/17 15:00 23:00 07:00 Intake Total 420 ml 200 ml Balance 420 ml 200 ml Exam General: Well developed,adequately built, not in any acute distress . HEENT: Normocephalic, Atraumatic, No laceration or hematoma; Eyes: PEERL, Conjunctiva clear, Anicteric sclera Neck: Supple without any lymphadenopathy, nontender, no JVD, no carotid bruits, trachea midline, no thyromegaly Cardiac: S1, S2 auscultated, regular rhythm and rate, no mumurs or gallop Pulmonary: Normal respiratory effort. Chest clear to auscultation bilaterally, no adventitious breath sounds GI: Abdomen normal to inspection. Soft, non tender, non- distended, no masses, no rebound tenderness or guarding. Bowel sounds active on all four quadrants Genitourinary: Deferred Extremities: CAM boot on right lower extremity. No cyanosis, clubbing, or edema. Pulses [2+] bilaterally. Full ROM on all four extremities. No focal weakness appreciated. Neurologic: Alert to person, place, time, and situation. Affect appropriate, intact sensation. Skin: Clean,dry, and intact. No ecchymosis, no rashes, or lesions Results Result Diagram: 06/26/1763506/26/17635 Results 24 hrs Laboratory Tests Test 06/26/17 17:38 06/26/17 20:32 06/27/17 06:12 06/27/17 08:01 Bedside Glucose 149 166 139 Triglycerides Level 95 Cholesterol Level 164 LDL Cholesterol, Calculated 113 HDL Cholesterol 32 L Cholesterol/HDL Ratio 5.1 Medications Medications Current Medications Senna (Senokot) 2 tab DAILY PRN PO CONSTIPATION Last administered on 06/26/17 08:37; Admin Dose 2 TAB; Start 06/22/17 at 00:00 Lisinopril (Zestril) 20 mg DAILY PO Last administered on 06/27/17 08:28; Admin Dose 20 MG; Start 06/22/17 at 09:00 Acetaminophen/ Hydrocodone Bitart ([place] (7.5-325)) 1 tab Q4H PRN PO PAIN Last administered on 06/26/17 22:05; Admin Dose 1 TAB; Start 06/22/17 at 00:00 Acetaminophen (Tylenol Tab) 650 mg Q6H PRN PO PAIN AND OR ELEVATED TEMP; Start 06/22/17 at 00:00 Atorvastatin Calcium (Lipitor) 40 mg DAILY@21 PO Last administered on 20:34; Admin Dose 40 MG; Start 06/22/17 at 21:00 Docusate Sodium (Colace) 100 mg BID PO Last administered on 06/27/17 08:27; Admin Dose 100 MG; Start 06/22/17 at 09:00 Senna (Senokot) 1 tab HS PO Last administered on 06/25/17 20:10; Admin Dose 1 TAB; Start 06/22/17 at 21:00 Bisacodyl (Dulcolax Supp) 10 mg DAILY PRN [place] CONSTIPATION; Start 06/22/17 at 01 :00 Magnesium Hydroxide (Milk Of Mag) 30 ml BID PRN PO CONSTIPATION; Start at 01:00 Lactulose (Enulose) 20 gm DAILY PRN PO CONSTIPATION Last administered on 08:39; Admin Dose 20 GM; Start 06/22/17 at 01:00 Miscellaneous Information 1 ea NOTE XX ; Start 06/22/17 at 13:00 Glucose (Glutose) 15 gm Q15M PRN PO DECREASED GLUCOSE; Start 06/22/17 at 13:00 Glucose (Glutose) 22.5 gm Q15M PRN PO DECREASED GLUCOSE; Start 06/22/17 at 13: 00 Dextrose (D50w Syringe) 25 ml Q15M PRN IV DECREASED GLUCOSE; Start 06/22/17 at 13:00 Dextrose (D50w Syringe) 50 ml Q15M PRN IV DECREASED GLUCOSE; Start 06/22/17 at 13:00 Glucagon (Glucagen) 1 mg Q15M PRN IM DECREASED GLUCOSE; Start 06/22/17 at 13:00 Glucose (Glutose) 15 gm Q15M PRN BUCCAL DECREASED GLUCOSE; Start 06/22/17 at 13 :00 Linagliptin (Tradjenta) 5 mg DAILY PO Last administered on 06/27/17 08:28; Admin Dose 5 MG; Start 06/23/17 at 09:00 Diagnostic Test (Pha) (Accu-Chek) 1 ea BID XX Last administered on 06/27/17 08:28; Admin Dose 1 EA; Start 06/25/17 at 21:00 Diagnostic Test (Pha) (Accu-Chek) 1 ea 02 XX ; Start 06/27/17 at 02:00 Diagnostic Test (Pha) (Accu-Chek) 1 ea 02 XX ; Start 06/27/17 at 02:00 REINA HEAD NP Jun 27, 2017 11:27
[2017-06-27 20:00] VITALS: BP 158/69; RESP 18
--- NOTE | 2017-06-28 11:48 | DS ---
Date/Time of Note Date/Time of Note DATE: 06/28/17 TIME: 11:47 Discharge Summary Admission/Discharge Info Admit Date/Time Jun 21, 2017 at 21:00 Discharge Date/Time Jun 27, 2017 at 20:40 Discharge Diagnosis 1. Right 5th metatarsal fracture with Cam boot placement; History of CVA. 2. Hypertension. 3. Hyperlipidemia. 4. Diabetes mellitus. 5. Improvements in self-care and mobility. Patient Condition: Good Hospital Course DISCHARGE Patient was admitted for comprehensive interdisciplinary acute rehabilitation. Patient made steady functional gains and improved from a min level to a Supervised level for self care and mobility, including ambulating over 150 feet with the use of a front wheeled walker, and stair mobility. Patient is being discharged home with recommendations for home health PT and OT follow up. DME recommendations: FWW; BSC; Shower Chair Patient will follow up with PMD upon DC. Home Meds Active Scripts Ibuprofen* (Motrin*) 600 Mg Tab, 400 MG PO Q6H Y for PAIN AND OR ELEVATED TEMP, #30 TAB Prov:TONNY FAROOQ PA-C 06/16/17 Reported Medications Lisinopril* (Lisinopril*) 20 Mg Tablet, 20 MG PO DAILY, #30 TAB 06/16/17 Primary Care Provider [facility] Pending Labs Laboratory Tests Test 06/27/17 12:22 06/27/17 17:34 Bedside Glucose 182mg/dL (70-220) 92mg/dL (70-220) CYNDEE GRIFFITHS MD Jun 28, 2017 11:48
== END 2017-06-27 20:40 | disposition home or self-care (01) | DRG 561 ==
LOC: VRC 21:00
PROVIDERS: ADMIT Physical Medicine & Rehabilitation; ATTEND Internal Medicine Pulmonary Disease
PROC: F07Z9FZ Gait Training/Functional Ambulation Treatment using Assistive, Adaptive, Supportive or Protective Equipment (ICD-10-PCS; principal; 2017-06-21)
PROC: F07Z5FZ Bed Mobility Treatment using Assistive, Adaptive, Supportive or Protective Equipment (ICD-10-PCS; 2017-06-21)
PROC: F07Z8FZ Transfer Training Treatment using Assistive, Adaptive, Supportive or Protective Equipment (ICD-10-PCS; 2017-06-21)
PROC: F08Z2FZ Grooming/Personal Hygiene Treatment using Assistive, Adaptive, Supportive or Protective Equipment (ICD-10-PCS; 2017-06-21)
PROC: F08Z0FZ Bathing/Showering Techniques Treatment using Assistive, Adaptive, Supportive or Protective Equipment (ICD-10-PCS; 2017-06-21)
PROC: F08Z1FZ Dressing Techniques Treatment using Assistive, Adaptive, Supportive or Protective Equipment (ICD-10-PCS; 2017-06-21)
DX: S92.354D Nondisplaced fracture of fifth metatarsal bone, right foot, subsequent encounter for fracture with routine healing (principal); E11.9 Type 2 diabetes mellitus without complications; I10 Essential (primary) hypertension; K59.00 Constipation, unspecified; Z79.4 Long term (current) use of insulin; Z86.73 Personal history of transient ischemic attack (TIA), and cerebral infarction without residual deficits; W18.30XD Fall on same level, unspecified, subsequent encounter
CPT/HCPCS: 80048; 80053; 80061; 81001; 82962; 85025; 85610; 85730; 87081; 87086; 97110; 97112; 97116; 97150; 97163; 97530; 97535; J1815